=== PATIENT | female | born 1930 | race Caucasian/White ===

== ENCOUNTER 2018-12-11 00:13 | Inpatient (IN) ==
--- NOTE | 2018-12-11 00:24 | ED.PDOC ---
General ED Provider: Dr. DONN PAUL Chief Complaint: Multiple Trauma Stated Complaint: NH stated patient fell earlier today and seemed ok. This evening started "patting" her Rt Hip therefore sent her in for eval of poss hip injury. Is alert and talking. Offers no complaints Time Seen by Physician: 12:00 Mode of Arrival: Ambulance Information Source: Patient, EMT Exam Limitations: Clinical condition, Dementia Seen Within Last 72 Hours for Same Complaint By: ED Nursing and Triage Documentation Reviewed and Agree: Yes Does patient meet sepsis criteria?: Yes If yes, has appropriate treatment been initiated?: Yes System Inflammatory Response Syndrome: Temp 101F or Greater Sepsis Protocol: For patient's 13 years and over: Temp is 96.8 and below OR 101 and greater Pulse >90 BPM Resp >20/minute Acutely Altered Mental Status Are patient's symptoms suggestive of a new infection, such as: -Pneumonia -Skin, Soft Tissue -Endocarditis -UTI -Bone, Joint Infection -Implantable Device -Acute Abdominal Infection -Wound Infection -Meningitis -Blood Stream Catheter Infection -Unknown Review of Systems - Review Of Systems Constitutional: Reports: Malaise, Weakness Eyes: Reports: No symptoms Ears, Nose, Mouth, Throat: Reports: No symptoms Respiratory: Reports: Cough Cardiac: Reports: No symptoms GI: Reports: No symptoms : Reports: No symptoms Musculoskeletal: Reports: Joint pain Skin: Reports: No symptoms Neurological: Reports: Cognitive dysfunction Endocrine: Reports: No symptoms Hematologic/Lymphatic: Reports: No symptoms All Other Systems: Reviewed and Negative Past Medical History - Past Medical History Previously Healthy: Yes Endocrine: Reports: None Cardiovascular: Reports: None, Hypertension Respiratory: Reports: None, Unknown Hematological: Reports: None Gastrointestinal: Reports: None Genitourinary: Reports: None Neuro/Psych: Reports: None, Dementia Musculoskeletal: Reports: None, Back Pain, Joint Pain Cancer: Reports: None - Surgical History General Surgical History: Reports: None - Family History Family History: Reports: None Physical Exam - Physical Exam Appearance: Ill-appearing Ill-appearing: Moderate Pain Distress: Moderate Eyes: AMINA, EOMI, Conjunctiva clear ENT: Ears normal, Nose normal, Oropharynx normal Neck: Supple Respiratory: Breath sounds diminished Cardiovascular: RRR, Pulses normal, No rub, No murmur Musculoskeletal: Normal strength, ROM intact, No edema, No calf tenderness Skin: Warm, Dry, Normal color Neurological: Sensation intact, Motor intact, Reflexes intact, Cranial nerves intact, Alert, Oriented Psychiatric: Affect appropriate, Mood appropriate Critical Care Note - Critical Care Note Total Time (mins): 60 Course - Course Hematology/Chemistry: 12/11/18 00:56 12/11/18 00:56 Orders, Labs, Meds: Lab Review 12/11/18 12/11/18 12/11/18 00:56 00:56 00:56 WBC 11.55 H RBC 3.94 L Hgb 10.9 L Hct 33.9 L MCV 86.0 MCH 27.7 MCHC 32.2 RDW Coeff of Kody 14.0 Plt Count 268 Immature Gran % (Auto) 0.4 Neut % (Auto) 81.8 Lymph % (Auto) 5.8 L Brooks % (Auto) 11.6 H Eos % (Auto) 0.1 Baso % (Auto) 0.3 Immature Gran # (Auto) 0.1 Neut # (Auto) 9.5 H Lymph # (Auto) 0.7 Brooks # (Auto) 1.3 Eos # (Auto) 0.0 Baso # (Auto) 0.0 Puncture Site O2 Saturation ABG pH ABG pCO2 ABG pO2 ABG HCO3 ABG Total CO2 ABG Base Excess Jj Test FiO2 % Sodium Potassium Chloride Carbon Dioxide Anion Gap BUN Creatinine Estimated GFR (MDRD) BUN/Creatinine Ratio Glucose Lactic Acid 1.19 Calcium Total Bilirubin AST ALT Alkaline Phosphatase Troponin I Total Protein Albumin Globulin Albumin/Globulin Ratio Procalcitonin 0.11 12/11/18 12/11/18 00:56 01:48 WBC RBC Hgb Hct MCV MCH MCHC RDW Coeff of Kody Plt Count Immature Gran % (Auto) Neut % (Auto) Lymph % (Auto) Brooks % (Auto) Eos % (Auto) Baso % (Auto) Immature Gran # (Auto) Neut # (Auto) Lymph # (Auto) Brooks # (Auto) Eos # (Auto) Baso # (Auto) Puncture Site Lrad O2 Saturation 94.0 L ABG pH 7.505 H* ABG pCO2 29.4 L ABG pO2 63.0 L ABG HCO3 23.2 ABG Total CO2 24 ABG Base Excess 0 Jj Test + FiO2 % 21.0 Sodium 138.0 Potassium 4.18 Chloride 102.4 Carbon Dioxide 25.0 Anion Gap 14.78 BUN 19.5 H Creatinine 0.93 Estimated GFR (MDRD) 57.00 BUN/Creatinine Ratio 20.96 Glucose 122.5 H Lactic Acid Calcium 8.98 Total Bilirubin 0.45 AST 20.5 ALT 16.0 Alkaline Phosphatase 75.8 Troponin I < 0.012 Total Protein 7.04 Albumin 4.02 Globulin 3.02 Albumin/Globulin Ratio 1.33 Procalcitonin Orders Category Date Time Status ABG DRAW REQUEST Stat CARDIO 12/11/18 01:48 Ordered EKG-(ED ONLY) Stat CARDIO 12/11/18 01:48 Completed NEBULIZER TREATMENT Routine CARDIO 12/11/18 02:37 Ordered NEBULIZER TREATMENT Stat CARDIO 12/11/18 01:49 Ordered NEBULIZER TREATMENT Stat CARDIO 12/11/18 01:49 Ordered OXYGEN Routine CARDIO 12/11/18 02:26 Ordered ACTIVITY .Complete BR CARE 12/11/18 02:33 Ordered BLOOD GLUCOSE MONITORING 0630,1100,1700,2100 CARE 12/11/18 02:36 Ordered INTAKE & OUTPUT Q8HR CARE 12/11/18 02:32 Ordered VITAL SIGNS Q4HR CARE 12/11/18 02:32 Ordered SOFT DIET DIETARY 12/11/18 Breakfast Ordered IV [ED IV/MEDIPORT/POWERPORT] .ONCE EMERGENCY 12/11/18 01:24 Active ABG Stat LAB 12/11/18 01:48 Ordered BLOOD CULTURE (ED ONLY) Stat LAB 12/11/18 00:56 Received BLOOD CULTURE (ED ONLY) Stat LAB 12/11/18 02:02 Received CBC W/ AUTO DIFF Stat LAB 12/11/18 00:56 Completed CMP [COMPREHENSIVE METABOLIC PANEL] Stat LAB 12/11/18 00:56 Completed LACTIC ACID Stat LAB 12/11/18 00:56 Completed PROCALCITONIN Stat LAB 12/11/18 00:56 Completed SPUTUM CULTURE Stat LAB 12/11/18 01:50 Uncollected TROPONIN I Stat LAB 12/11/18 00:56 Completed UA [URINALYSIS C & S IF INDICATED] Stat LAB 12/11/18 00:28 Uncollected UA [URINALYSIS C & S IF INDICATED] Stat LAB 12/11/18 00:36 Uncollected 0.9 % Sodium Chloride [Saline Flush] MEDS 12/11/18 01:24 Ordered 1 syr IVF PRN PRN Albuterol Sulfate 0.083% Neb [Albuterol 0.083% Neb] MEDS 12/11/18 01:49 Discontinued 1 vial NEB ONCE STA Aztreonam [Azactam] 1 gm MEDS 12/11/18 05:00 Ordered 0.9 % Sodium Chloride [Sodium Chloride] 50 ml IV Q8HR Ceftriaxone Sodium [Rocephin] 1 gm MEDS 12/11/18 09:00 Ordered 0.9 % Sodium Chloride [Sodium Chloride] 50 ml IV DAILY Ceftriaxone/Dextrose,Iso Osm [Rocephin 1 gm Premix] 1 MEDS 12/11/18 01:28 Discontinued gm Premix 50 ml D5w 1 bag IV ONCE Ceftriaxone/Dextrose,Iso Osm [Rocephin 1 gm Premix] 50 MEDS 12/11/18 01:39 Discontinued ml IV .STK-MED Enoxaparin Sodium [Lovenox] MEDS 12/11/18 03:00 Ordered 30 mg SUBCUT DAILY Ipratropium/Albuterol Neb [Duoneb] MEDS 12/11/18 02:32 Ordered 1 vial NEB RTQ6H PRN Methylprednisolone Sod Succ/Pf [Solu-Medrol 125 mg] MEDS 12/11/18 03:00 Ordered 125 mg IVP Q8HR Ondansetron HCl/Pf [Zofran 4 mg/2 ml] MEDS 12/11/18 02:32 Ordered 4 mg IVP Q6H PRN Sodium Chloride 0.9% [Sodium Chloride] 1,000 ml MEDS 12/11/18 01:24 Active IV ONCE RESUSCITATION STATUS Routine OTHERS 12/11/18 02:[address] ABDOMEN/PELVIS WO CONTRAST Stat RADS 12/11/18 00:[address] CHEST W/O CONTRAST Stat RADS 12/11/18 00:31 Completed Medications Generic Name Dose Route Start Last Admin Trade Name Freq PRN Reason Stop Dose Admin Albuterol/Ipratropium 1 vial 12/11/18 02:32 Duoneb NEB RTQ6H PRN Wheezing Enoxaparin Sodium 30 mg 12/11/18 03:00 Lovenox SUBCUT DAILY ISAAC Sodium Chloride 1,000 mls @ 125 mls/hr 12/11/18 01:24 12/11/18 02:02 Sodium Chloride IV 12/11/18 09:23 125 mls/hr ONCE ONE Administration Aztreonam 1 gm/ Sodium 50 mls @ 75 mls/hr 12/11/18 05:00 Chloride IV 12/14/18 04:59 Q8HR ISAAC Ceftriaxone Sodium 1 gm/ 50 mls @ 75 mls/hr 12/11/18 09:00 Sodium Chloride IV 12/14/18 08:59 DAILY ISAAC Methylprednisolone Sodium Succinate 125 mg 12/11/18 03:00 Solu-Medrol 125 Mg IVP Q8HR ISAAC Ondansetron HCl 4 mg 12/11/18 02:32 Zofran 4 Mg/2 Ml IVP Q6H PRN Nausea and Vomiting Sodium Chloride 1 syr 12/11/18 01:24 12/11/18 02:02 Saline Flush IVF 1 syr PRN PRN Administration To flush IV Discontinued Medications Generic Name Dose Route Start Last Admin Trade Name Freq PRN Reason Stop Dose Admin Albuterol Sulfate 1 vial 12/11/18 01:49 Albuterol 0.083% Neb NEB 12/11/18 01:50 ONCE STA CEFTRIAXONE/DEXTROSE,ISO OSM 1 50 mls @ 75 mls/hr 12/11/18 01:28 12/11/18 02: 05 gm/ Dextrose IV 12/11/18 02:07 75 mls/hr ONCE STA Administration Vital Signs: Temp Pulse Resp BP Pulse Ox 12/11/18 02:42 101.1 F H 12/11/18 00:14 101.4 F H 75 18 165/71 H 93 L Departure - Departure Time of Disposition: 02:30 Disposition: ADMITTED INPATIENT Discharge Problem: Pneumonia, Pleural effusion, Sepsis Condition: Fair Pt referred to PMD for follow-up: No IPMP verified?: No Allergies/Adverse Reactions: Allergies Penicillins Adverse Reaction (Verified 12/11/18 00:29) Unknown Home Medications: Ambulatory Orders Acetaminophen [Tylenol] 650 mg PO Q6H PRN 12/11/18 Amlodipine Besylate 10 mg PO DAILY 12/11/18 Bisacodyl 5 mg PO DAILY 12/11/18 Bisacodyl [Dulcolax] 10 mg RC DAILY PRN 12/11/18 Donepezil HCl [Aricept] 5 mg PO DAILY 12/11/18 Lisinopril [Zestril] 40 mg PO BID 12/11/18 Lorazepam [Ativan] 0.5 mg PO TID 12/11/18 Meloxicam 15 mg PO DAILY 12/11/18 Memantine HCl 10 mg PO BID 12/11/18 Metoprolol Succinate [Toprol Xl] 50 mg PO DAILY 12/11/18 Petrolatum,White [Petrolatum] 100 gm TP DIRECTED PRN 12/11/18 Quetiapine Fumarate [Seroquel] 50 mg PO BID 12/11/18 Disposition Discussed With: Patient
--- NOTE | 2018-12-11 01:13 | CT ---
EXAM: CT scan chest without contrast HISTORY: Fall COMPARISON: None. FINDINGS: Contiguous axial images obtained through the thorax without contrast in a 5 mm collimation . Sagittal and coronal reconstructions were imaged and reviewed.. The thoracic inlet is is unremark able. There are subcentimeter pretracheal lymph nodes.. The heart is top normal in size with extens juany coronary artery calcification. There is small pericardial effusion measuring 1.6 centimeters. T here is moderately large right pleural effusion measuring 6.4 cm AP dimension with adjacent atelectas is and/or pneumonia. Scattered consolidation and is seen within the right upper medial segment of th e right mid lobe. There is a trace left pleural effusion.. The bone windows reveals no evidence of lytic or blastic lesions. IMPRESSION: Heart is top normal in size with small pericardial effusion and coronary artery calcification Large right pleural effusion with right upper and middle lobe consolidation Trace left pleural effusion
--- NOTE | 2018-12-11 01:20 | CT ---
EXAM: CT abdomen pelvis without intravenous contrast 12/11/2018. Sagittal and coronal reformatted i ara obtained HISTORY: Pain. Fall COMPARISON: 12/11/2018 FINDINGS: Please refer to report of CT chest for discussion of findings within the lung bases. The liver shows no acute abnormality. Gallbladder shows no gross abnormality. The adrenal glands an d kidneys show no acute abnormality. No hydronephrosis. The spleen and pancreas appear within sapna l limits. Small bowel is normal in caliber without obstruction. Unremarkable urinary bladder. No evidence of appendicitis. There is a prominent quantity of stool in the colon. Correlate for constipation. Chronic degenerative disc disease. No acute osseous abnormality. IMPRESSION: 1. Please refer to report of CT chest for discussion of findings within the lung bases. 2. No acute inflammatory process identified within the abdomen or pelvis within the limitation of a noncontrast enhanced examination. 3. Large quantity of stool in the colon. Correlate for constipation. 4. Atherosclerotic vascular disease. 5. Chronic degenerate disc disease.
[2018-12-11] MEDS ORDERED: SODIUM CHLORIDE 1,000 ML IV ONE (01:24)
[2018-12-11] MEDS ORDERED: ROCEPHIN 1 GM/50 ML D5W 1 GM in PREMIX 50 ML D5W 1 BAG IV STA (01:28)
[2018-12-11] MEDS ORDERED: ROCEPHIN 1 GM/50 ML D5W 50 ML IV ONE (01:39)
[2018-12-11] MEDS ORDERED: ALBUTEROL 0.083% NEB NEB STA (01:49)
[2018-12-11] MEDS ORDERED: ZOFRAN 4 MG/2 ML IVP PRN (02:32)
[2018-12-11] MEDS ORDERED: DUONEB NEB PRN (02:32)
[2018-12-11 04:09] VITALS: BMI 23.6
[2018-12-11] MEDS: LOVENOX SUBCUT SCH ×2 (04:09→08:15)
[2018-12-11] MEDS: SOLU-MEDROL 125 MG IVP SCH ×3 (04:16→12:04)
[2018-12-11] MEDS ORDERED: AZACTAM ONE (05:46)
[2018-12-11] MEDS: AZACTAM 1 GM in SODIUM CHLORIDE 50 ML IV SCH ×2 (05:50→12:04)
[2018-12-11] MEDS ORDERED: ATROPINE SULFATE PFS IVP PRN (06:18)
[2018-12-11] MEDS ORDERED: TYLENOL PO PRN (09:48)
[2018-12-11] MEDS ORDERED: DULCOLAX RC PRN (09:49)
[2018-12-11] MEDS ORDERED: NON-FORMULARY MEDICATION (Donepezil Hcl [Aricept] 5 MG) PO SCH (10:00)
[2018-12-11] MEDS ORDERED: TOPROL XL PO SCH (10:00)
[2018-12-11] MEDS ORDERED: NON-FORMULARY MEDICATION (Amlodipine Besylate [Amlodipine Besylate] 10 MG) PO SCH (10:00)
[2018-12-11] MEDS ORDERED: NON-FORMULARY MEDICATION (Quetiapine Fumarate [Seroquel] 50 MG) PO SCH (10:00)
[2018-12-11] MEDS ORDERED: NON-FORMULARY MEDICATION (Meloxicam [Meloxicam] 15 MG) PO SCH (10:00)
[2018-12-11] MEDS ORDERED: SEROQUEL PO SCH (10:30)
[2018-12-11] MEDS ORDERED: MOBIC PO SCH (10:30)
[2018-12-11] MEDS ORDERED: ZESTRIL PO ONE (10:30)
[2018-12-11] MEDS: ARICEPT PO SCH (10:40)
[2018-12-11] MEDS: ATIVAN PO SCH ×3 (10:41→20:16)
[2018-12-11] MEDS: NORVASC PO SCH (10:41)
[2018-12-11] MEDS: DULCOLAX PO SCH (10:42)
[2018-12-11] MEDS: NAMENDA PO SCH ×2 (10:42→20:16)
[2018-12-11] MEDS ORDERED: INFUVITE ADULT IV ONE (17:54)
[2018-12-11] MEDS ORDERED: INFUVITE ADULT 10 ML in D5%-1/2NS-KCL 20 MEQ/L IV SOL 1,000 ML IV SCH (18:00)
[2018-12-11] MEDS: SILVADENE CREAM TP SCH ×3 (18:21→20:21)
[2018-12-11] MEDS: SEROQUEL PO SCH (20:16)
[2018-12-11] MEDS: ROCEPHIN 1 GM VIAL 1 GM in SODIUM CHLORIDE 50 ML IV SCH (20:17)
[2018-12-12] MEDS: NAMENDA PO SCH ×2 (08:09→20:27)
[2018-12-12] MEDS: TOPROL XL PO SCH (08:09)
[2018-12-12] MEDS: DULCOLAX PO SCH (08:09)
[2018-12-12] MEDS: ATIVAN PO SCH ×3 (08:09→20:26)
[2018-12-12] MEDS: NORVASC PO SCH (08:09)
[2018-12-12] MEDS: ARICEPT PO SCH (08:10)
[2018-12-12] MEDS: SILVADENE CREAM TP SCH ×2 (08:10→20:28)
[2018-12-12] MEDS: LOVENOX SUBCUT SCH (08:11)
[2018-12-12] MEDS ORDERED: TOPROL XL PO SCH (09:00)
[2018-12-12] MEDS: ZESTRIL PO SCH ×2 (09:42→09:49)
[2018-12-12] MEDS: HYDROCHLOROTHIAZIDE PO SCH (09:49)
[2018-12-12] MEDS ORDERED: INFUVITE ADULT IV ONE (19:26)
[2018-12-12] MEDS: INFUVITE ADULT 10 ML in D5%-1/2NS-KCL 20 MEQ/L IV SOL 1,000 ML IV SCH (19:27)
[2018-12-12] MEDS: SEROQUEL PO SCH (20:26)
[2018-12-12] MEDS: ROCEPHIN 1 GM VIAL 1 GM in SODIUM CHLORIDE 50 ML IV SCH (20:26)
[2018-12-12] MEDS ORDERED: CLEOCIN ONE (23:34)
[2018-12-12] MEDS: CLEOCIN 600 MG in SODIUM CHLORIDE 50 ML IV SCH (23:40)
[2018-12-13] MEDS: NAMENDA PO SCH ×2 (08:55→21:13)
[2018-12-13] MEDS: HYDROCHLOROTHIAZIDE PO SCH (08:55)
[2018-12-13] MEDS: CLEOCIN 600 MG in SODIUM CHLORIDE 50 ML IV SCH ×2 (08:55→22:09)
[2018-12-13] MEDS: NORVASC PO SCH (08:56)
[2018-12-13] MEDS: ATIVAN PO SCH ×3 (08:56→21:13)
[2018-12-13] MEDS: DULCOLAX PO SCH (08:56)
[2018-12-13] MEDS: ARICEPT PO SCH (08:57)
[2018-12-13] MEDS: ZESTRIL PO SCH (08:57)
[2018-12-13] MEDS: TOPROL XL PO SCH (08:57)
[2018-12-13] MEDS: LOVENOX SUBCUT SCH (08:58)
[2018-12-13] MEDS: SILVADENE CREAM TP SCH ×2 (09:52→21:17)
[2018-12-13] MEDS: INFUVITE ADULT 10 ML in D5%-1/2NS-KCL 20 MEQ/L IV SOL 1,000 ML IV SCH (19:00)
[2018-12-13] MEDS: ROCEPHIN 1 GM VIAL 1 GM in SODIUM CHLORIDE 50 ML IV SCH (21:13)
[2018-12-13] MEDS: SEROQUEL PO SCH (21:13)
[2018-12-14] MEDS: CLEOCIN 600 MG in SODIUM CHLORIDE 50 ML IV SCH ×2 (08:18→20:20)
[2018-12-14] MEDS: ATIVAN PO SCH ×3 (08:20→20:21)
[2018-12-14] MEDS: DULCOLAX PO SCH (08:21)
[2018-12-14] MEDS: HYDROCHLOROTHIAZIDE PO SCH (08:22)
[2018-12-14] MEDS: NORVASC PO SCH (08:24)
[2018-12-14] MEDS: ARICEPT PO SCH (08:26)
[2018-12-14] MEDS: ZESTRIL PO SCH (08:26)
[2018-12-14] MEDS: TOPROL XL PO SCH (08:26)
[2018-12-14] MEDS: LOVENOX SUBCUT SCH (08:32)
[2018-12-14] MEDS: NAMENDA PO SCH ×2 (09:03→20:20)
[2018-12-14] MEDS: SILVADENE CREAM TP SCH ×2 (09:38→20:22)
[2018-12-14] MEDS ORDERED: INFUVITE ADULT IV ONE (13:04)
--- NOTE | 2018-12-14 14:16 | HP ---
DATE OF SERVICE: 12/11/18 CHIEF COMPLAINT: Multiple trauma and she was a transfer from [facility] per nursing staff per ER records. The longterm stated that the patient fell. HISTORY OF PRESENT ILLNESS: Per ER records the longterm had stated that the patient had feel earlier that day and seemed okay. Later that evening the patient had started patting her right hip and therefore they sent her to the ER for evaluation of possible hip injury. She was alert and talking. She offered no complaints while in the emergency department. A workup was completed and her WBC was 11.55, hgb 10.9, hct 33.9, plt count 268. A CT of the chest showed a large right pleural effusion and a right lower lobe consolidation and left trace pleural effusion. CT of the abdomen and pelvis showed no acute abdominal or osteosis abnormalities , it did show constipation. The patient was placed on oxygen as well as given a nebulizer treatment. ABG's were drawn. EKG was obtained. Blood cultures were also obtained and cardiac markers were also obtained in the emergency department. PCo2 was 29.4, pO2 63, HCO3 23.2. The case was discussed with Dr. Burciaga and the discussion was made to admit the patient inpatient for evaluation and treatment of the pneumonia. PAST PERSONAL HISTORY: Hypertension Cardiac disorders Alzheimer's disease Dysphagia Respiratory disorders Pneumonia Constipation Chronic kidney disease stage 3 Osteoarthritis No surgical history reported FAMILY HISTORY: Not reported SOCIAL HISTORY: No reports of alcohol, tobacco or illicit drug use. MEDICATIONS: Acetaminophen 325 every 6 hours as needed Seroquel 50mg twice a day Petrolatum 100gram TP as directed PRN Amlodipine 10mg tablet daily Metoprolol Succinate 50mg PO daily Memantine 10mg tablet twice a day Meloxicam 15mg tablet daily Zestril 40mg PO twice a day Dulcolax 10mg rectal suppository as needed Bisacodyl 5mg PO daily Ativan 0.5mg PO three times a day Aricept 5mg PO daily ALLERGIES: Penicillin REVIEW OF SYSTEMS: CONSTITUTIONAL: Difficult to obtain due to patient's hearing loss and also dementia but with nursing staff and review of ER reports there were no reports of fevers, chills. HEENT: No reports of headache or nasal drainage or sore throat. CARDIOVASCULAR: There was no reports of chest pains or peripheral edema LUNGS: The patient did not have complaints of shortness of breath. There were no reports cough or congestion. GI: NO reports of abdominal pain, nausea or vomiting or diarrhea or constipation but according to records the patient must have a history of chronic constipation as she does take stool softeners. No reports of blood in the stool : no reports of UTI symptoms. No reports of Hematuria or dysuria. MUSCULOSKELETAL: There was reports per nursing staff that the patient was not able to ambulate however the nursing staff did report that the patient was able to ambulate with therapy down the hallway. They are wanting a physical therapy order to help with gait training at discharge and this will be done. Reason for the admission the patient had a fall, I'm unsure as why the patient had a fall this was incidental. It was not reported as to why the patient fell and she initially had some complaints of some right hip discomfort as she had patted her right hip but that was resolved when she had got to the emergency department. NEUROLOGICAL: No reports of dizziness or any neurological deficit or syncopal episode. PSYCHOLOGICAL: No reports of anxiety, depression or mood changes. She does have a history of Alzheimer's Dementia. She is alert and she is pleasant. ENDOCRINE: No reports of diabetes mellitus or thyroid disease INTEGUMENTARY: She does have some dry skin otherwise no reports of any rash, lesion, skin changes or not healing wounds. PHYSICAL EXAMINATION: GENERAL: She is alert, confused. She does have Alzheimer's Dementia. She is pleasant. VITAL SIGNS: Temperature 101.4, pulse 75, blood pressure 165/71, O2 saturation 93% on room air, height 5'5 and weight 143 pounds. HEAD: Normal cephalic. Atraumatic EYES: Pupils equal/reactive to light. Conjunctivae not pale. Sclerae not icteric. MOUTH: She does not have dentures in place THROAT: No inflammation, tumors or exudate. NECK: No masses. No bruit. No tenderness. No rigidity. Supple. CHEST: S1, S2 regular rate. LUNGS: Diminished. Breathing is stable. Difficult to auscultate her lungs as the patient has a hard time following directions HEART: Audible and regular with good tones. No murmurs. ABDOMEN: Soft. Bowel sounds are positive all four quadrants. No rebound tenderness or rigidity. NEURO: Cranial nerves II through XII are grossly intact. No advert neurological deficit. SKIN: Warm and dry. No obvious rashes, Lesions or wounds. LOWER EXTREMITIES: She does have some trace lower extremity edema. Peripheral pulses are diminished and difficult to palpate. LABS/DIAGNOSTIC TESTING: WBC on admission 11.55, hgb 10.9, hct 33.9, plt count 268, blood gasses already discussed in HPI, Sodium 138, Potassium 4.18, BUN 19.5, creatinine 0.93, AST 20.5, ALT 16.0, Troponin is negative. Procalcitonin 0.11. On admission urinalysis showed 3+ protein, 2+ blood, negative nitrates, 2+ mucus. ASSESSMENT: 1. Pneumonia 2. Large right pleural effusion with right upper and middle lobe consolidation per CT of the chest on admission 3. Fever 4. Status post recent fall with right hip discomfort on admission 5. History of Alzheimer's Dementia 6. Hypertension 7. Chronic kidney disease stage 3 PLAN: 1. Admit the patient inpatient 2. Start the patient on NEBS treatment 3. Blood cultures and sputum cultures 4. Antibiotics will be initiated. 5. Home medications will be resumed 6. The patient will be placed on Telemetry monitoring 7. The patient was getting a 2D echocardiogram done while I was in the room. 8. PT is already been in and working with the patient Further orders and recommendations per Dr. Burciaga TIME SPENT: GREATER THAN 65 MINUTES MTDD
--- NOTE | 2018-12-14 14:58 | PN ---
DATE OF SERVICE: 12/13/18 SUBJECTIVE: Today she is getting a 2 D echo completed. Today her vital signs; temperature 98.0, pulse 74, blood pressure 162/73, O2 saturation 93% on room air. She has been running on remote Telemetry which showed sinus rhythm with PVC's at a rate of 83 beats per minute. Again, she is getting a 2D echo and they are getting ready to do that in the room in just a minute. The nurse reports that physical therapy walked her in the hallway today and the family was unaware that she could walk the distance that she could walk and they are wanting an order for physical therapy to work with her at the assisted and I said that was very much appropriate that we would definitely agree with a physical therapy order at discharge and we have physical therapy work with the patient in the assisted to work with gait training. Again the family was very surprise that she could walk as well as she did. She seems to be in no acute distress. It is very difficult to do a physical exam on her. She was not able to follow any commands. She is very hard of hearing. She does not have any hearing aide devices in place. She also has some Alzheimer's Dementia and she can no follow very good commands. LUNGS: Seems to be somewhat diminished HEART: Regular on examined ABDOMEN: Soft and nontender. LOWER EXTREMITIES: Slight lower extremity edema. Lower extremity pulses are diminished. She has no complaints of pain today. Overall she appears to be resting comfortably. As far as orders she seems to be tolerating a soft diet puree with nectar thick liquids. She did have her left right wrapped. I was unaware that there was a wound on this hand but this hand was wrapped in a bandage. There must be a wound to this hand. This wound culture has grown out staphylococcus aureus, Kocuria Kristinae. Blood cultures have been negative after two days. NABIL
--- NOTE | 2018-12-14 15:57 | CT ---
EXAM: CT chest without contrast HISTORY: Shortness of air COMPARISON: 12/11/2018 TECHNIQUE: CT chest performed without intravenous contrast. Coronal and sagittal reformatted images obtained. FINDINGS: The thoracic inlet unremarkable. Heart mild to mildly enlarged. Coronary calcifications. Small pericardial effusion, unchanged. Evaluation for lymphadenopathy limited without contrast. N o lymphadenopathy identified. Aorta normal in caliber. Moderate atherosclerosis. Visualized portio n upper abdomen demonstrates no acute abnormality. Left renal cyst is unchanged. Body wall edema. No acute abnormalities of the bones. Lytic lesion T3, is indeterminate, may represent a hemangioma. Central airway patent. Large right pleural effusion is increased with adjacent atelectasis and/or c onsolidation. Small left pleural effusion is increased. Patchy consolidation and ground-glass infil trates throughout the right lung. No pneumothorax. IMPRESSION: 1. Patchy multifocal consolidation and ground-glass infiltrates throughout the right lung likely rep resenting pneumonia. 2. Large right pleural effusion is increased with adjacent atelectasis and/or pneumonia. 3. Small left pleural effusion, increased. 4. Cardiomegaly. 5. Small pericardial effusion. 6. Coronary calcifications. Atherosclerosis. 7. Indeterminate lytic lesion T3, may represent a hemangioma. Recommend correlation with MRI.
[2018-12-14] MEDS: XOPENEX 1.25 MG NEB SCH (16:59)
[2018-12-14] MEDS: SEROQUEL PO SCH (20:21)
[2018-12-15] MEDS: XOPENEX 1.25 MG NEB SCH (04:40)
[2018-12-15] MEDS: CLEOCIN 600 MG in SODIUM CHLORIDE 50 ML IV SCH (08:08)
[2018-12-15] MEDS: HYDROCHLOROTHIAZIDE PO SCH (08:09)
[2018-12-15] MEDS: ATIVAN PO SCH (08:09)
[2018-12-15] MEDS: DULCOLAX PO SCH (08:09)
[2018-12-15] MEDS: TOPROL XL PO SCH (08:10)
[2018-12-15] MEDS: NAMENDA PO SCH (08:10)
[2018-12-15] MEDS: ARICEPT PO SCH (08:10)
[2018-12-15] MEDS: ZESTRIL PO SCH (08:10)
[2018-12-15] MEDS: NORVASC PO SCH (08:10)
[2018-12-15] MEDS: LOVENOX SUBCUT SCH (08:11)
[2018-12-15] MEDS: SILVADENE CREAM TP SCH (08:49)
[2018-12-15] MEDS: INFUVITE ADULT 10 ML in D5%-1/2NS-KCL 20 MEQ/L IV SOL 1,000 ML IV SCH (10:04)
--- NOTE | 2018-12-15 13:24 | CONS ---
DATE OF CONSULTATION: 12/13/18 REASON FOR CONSULTATION/HISTORY OF PRESENT ILLNESS: The patient is seen in consultation because of pericardial effusion noted on CT scan along with pleural effusion with history of pneumonia. The patient has been hospitalized since 12/11/18 and being treated for pneumonia. The patient is hard of hearing, confused. The family is in the room. REVIEW OF SYSTEMS: CONSTITUTIONAL: No night sweats. No fatigue, malaise, lethargy. No fever or chills. HEENT: Eyes: No visual changes. No eye pain. No eye discharge. ENT: No sinus drainage. No epistaxis. No sinus pain. No sore throat. No odynophagia. No ear pain. No congestion. RESPIRATORY: Mild cough. No hemoptysis. No shortness of breath. CARDIOVASCULAR: No angina symptoms. No CHF symptoms. No atypical chest pain for CAD. No palpitations. No orthopnea. GASTROINTESTINAL: Appetite has improved. No abdominal pain. No nausea or vomiting. No diarrhea or constipation. No hematemesis. No hematochezia. GENITOURINARY: No urgency. No frequency. No dysuria. No hematuria. No obstructive symptoms. No discharge. No pain. No significant abnormal bleeding. MUSCULOSKELETAL: No musculoskeletal pain. No joint swelling. NEUROLOGICAL: No headache. No neck pain. No syncope. No seizures. No dizziness. PSYCHIATRIC: Not anxious. No depression. No suicidal thoughts. No homicidal thoughts. SKIN: No rash. No lesions. No wounds. ENDOCRINE: No unexplained weight loss. No weight gain. HEMATOLOGIC/LYMPHATIC: No anemia. No purpura. No petechiae. No prolonged or excessive bleeding. No palpable lymph nodes. 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 She is a resident of the [place]. Nonsmoker. No alcohol abuse. PHYSICAL EXAMINATION: GENERAL: The patient is confused but alert. She looks somewhat pale. VITAL SIGNS: Temperature 98.9, pulse 80, respiratory rate 18, BP 156/70, pulse ox 94%. HEENT: Head normocephalic, atraumatic. Eyes: Extraocular muscles are intact. Pupils are equal, round and reactive to light and accommodation. Ears: No lesions. Nose appeared normal. Throat: No exudate or erythema. NECK: Supple. No JVD, no carotid bruit. No lymphadenopathy or thyromegaly. LUNGS: Decreased breath sounds but clear to auscultation. Percussion note normal. Chest symmetrical. HEART: S1, S2, no S3. No murmurs. No cyanosis or clubbing. No ascites. Pulses: Dorsalis pedis and posterior tibial pulses +1 to +2 bilaterally. ABDOMEN: Soft. Nontender. Bowel sounds active. No CVA tenderness. No mass felt. EXTREMITIES: No edema. Full range of motion of all extremities, equal. NEUROLOGIC: Confused, disoriented, not oriented to place or person. No focal deficit. Cranial nerves II through XII are grossly intact. No headache, no double vision or headache. SKIN: Not dry. Intact. Turgor - normal. LYMPHATIC: No palpable lymph nodes/no lymphedema. MUSCULOSKELETAL: Normal joints with no swelling. Muscle tone is normal. LABS: Hemoglobin 9.3, hematocrit 29, WBC 11,000, normal differential. Creatinine 1.1, BUN 37, potassium 3.6. ASSESSMENT: 1. PNEUMONIA SEEMS TO BE RESOLVING. 2. PERICARDIAL EFFUSION WAS CHECKED BY ECHOCARDIOGRAM. ECHO SHOWED NORMAL LV CONTRACTILITY. PERICARDIAL EFFUSION WAS TRACE. VALVULAR STRUCTURES ARE NORMAL. MITRAL REGURGITATION NOTED. 3. THE PATIENT'S CARDIOVASCULAR STATUS IS STABLE. 4. PLEURAL EFFUSION COULD BE FROM MALNUTRITION ALONG WITH PNEUMONIA SEEMS TO BE RESOLVING CLINICALLY. Agree with present management. MTDD
--- NOTE | 2018-12-15 13:33 | CONS ---
DATE OF SERVICE: 12/14/18 CONSULT FOLLOWUP SUBJECTIVE: The patient was seen and examined on followup consult. The patient is alert, confused. REVIEW OF SYSTEMS: CONSTITUTIONAL: No night sweats. No fatigue, malaise, lethargy. No fever or chills. HEENT: Eyes: No visual changes. No eye pain. No eye discharge. ENT: No runny nose. No epistaxis. No sinus pain. No sore throat. No odynophagia. No ear pain. No congestion. RESPIRATORY: No cough, no congestion. No hemoptysis. CARDIOVASCULAR: No angina symptoms. No CHF symptoms. No atypical chest pain for CAD. No palpitations. No shortness of breath. GASTROINTESTINAL: No abdominal pain. No nausea or vomiting. No diarrhea or constipation. No hematemesis. No hematochezia. GENITOURINARY: No urgency. No frequency. No dysuria. No hematuria. No obstructive symptoms. No discharge. No pain. No significant abnormal bleeding. MUSCULOSKELETAL: No musculoskeletal pain. No joint swelling. No arthritis. NEUROLOGICAL: No headache. No neck pain. No syncope. No seizures. No dizziness. PSYCHIATRIC: Not anxious. No depression. No suicidal thoughts. No homicidal thoughts. SKIN: No rash. No lesions. No wounds. ENDOCRINE: No unexplained weight loss. No weight gain. HEMATOLOGIC/LYMPHATIC: No anemia. No purpura. No petechiae. No prolonged or excessive bleeding. No palpable lymph nodes. PHYSICAL EXAMINATION: VITAL SIGNS: Temperature 98, pulse 70, respiratory rate 18, blood pressure 150/ 67, pulse ox 92%. HEENT: Head normocephalic, atraumatic. Eyes: Extraocular muscles are intact. Pupils are equal, round and reactive to light and accommodation. Ears: No lesions. Nose appeared normal. Throat: No exudate or erythema. NECK: Supple. No JVD, no carotid bruit. No lymphadenopathy or thyromegaly. LUNGS: Decreased breath sounds but clear to auscultation. Percussion note normal. Chest symmetrical. HEART: S1, S2, no S3. No murmurs. No cyanosis or clubbing. No ascites. Pulses: Dorsalis pedis and posterior tibial pulses +1 to +2 bilaterally. ABDOMEN: Soft. Nontender. Bowel sounds active. No CVA tenderness. No mass felt. EXTREMITIES: No edema. Full range of motion of all extremities, equal. NEUROLOGIC: No focal deficit. Cranial nerves II through XII are grossly intact. No headache, no double vision or headache. SKIN: Hydration status - skin turgor seems to be normal. LYMPHATIC: No palpable lymph nodes/no lymphedema. MUSCULOSKELETAL: Normal joints with no swelling. Muscle tone is normal. ASSESSMENT: 1. Pneumonia seems to be resolving clinically. 2. Dementia is stable. PLAN: 1. Discontinue Meloxicam. 2. Continue Amlodipine and antihypertensive medications Metoprolol and Lisinopril. 3. I agree with the present management. CONDITION: Stable. MTDD
[2018-12-15 13:54] VITALS: BP 169/75; TEMP 99.4
--- NOTE | 2018-12-15 14:18 | DI ---
EXAM: RIGHT HIP, 2 VIEWS HISTORY: Hip pain FINDINGS / IMPRESSION: Limited image quality. No fracture or dislocation is obvious. There is at least mild osteoarthritis of the hip. No soft tissue finding.
--- NOTE | 2018-12-16 09:31 | ECHO2D ---
Date of Exam: 12/13/18 Ordering Physician: DR. ANDREY SAMS Room #: 114 Reason for Echo: SHORT OF AIR, PERICARDIAL EFFUSION M-Mode Normal Adult Results LV Dimensions Normal Adult Results AoV Opening excursions >1.6 >1.8 LVEDD-base- 3.5-5.8 4.3 Ao root dimensions 2.0-3.7 3.1 LVESD-base- 3.1-4.6 L. Atrium dimensions 1.9-3.8 4.7 Post. Wall thickness 0.8-1.1 1.1 IV septum (thickness) 0.7-1.2 1.2 Post. Wall excursion 0.72-1.3 NORMAL Septal motion NORMAL Systolic motion R. Ventricular cavity 1.5-2.0 NORMAL LVEF 60% 63% Paradoxical septal wall motion NORMAL 2-D : 2-D M Mode Echocardiogram was performed using apical four chamber and left parasternal long and short axis views. CALCIFIC MITRAL VALVE ANNULUS. Tricuspid and aortic valves appear to be normal. Contractility of the left ventricle seems to be normal, so is the cavity size. LEFT ATRIAL CAVITY ENLARGEMENT. Aortic root appears to be normal. There is no pericardial effusion. There is no thrombus noted in the left ventricular or left aortic cavity. No mitral valve prolapse noted. COLOR FLOW: MODERATE MITRAL REGURGITATION M-MODE: MV: CALCIFIC MITRAL VALVE ANNULUS AV: NORMAL TV: NORMAL PV: CHAMBER SIZE: ENLARGED LEFT ATRIAL CAVITY WALL MOTION: NORMAL PERICARDIUM: NORMAL INTERPRETATION: 1. BORDERLINE LEFT VENTRICLE HYPERTROPHY 2. ENLARGED LEFT ATRIAL CAVITY 3. CALCIFIC MITRAL VALVE ANNULUS 4. NORMAL LEFT VENTRICULAR CONTRACTILITY 5. MODERATE MITRAL REGURGITATION MTDD
--- NOTE | 2018-12-17 14:36 | PN ---
DATE OF SERVICE: 12/12/18 SUBJECTIVE: The patient is much more alert today and engaging. She wants to talk but could not hear very much. She did not have a hearing aid. Her color is good. She is not dyspneic or tachypneic. Yesterday the patient was hardly able to answer questions and she was drowsy. Vital signs today 8:41 p.m. temperature 98.7, pulse 65, blood pressure 138/80, respiratory rate 16, oxygen saturation 93 on room air. Lungs have rales more on the left side, few rales on the right. Heart is audible with good tones. Abdomen nontender. CBC today showed increasing WBC 10,0009 from 11,050 yesterday. BUN has risen to 37.6 and the creatinine is up to 1.20, EGFR 42. The patient's urinalysis on admission showed 20 to 30 RBC. Will repeat the urinalysis tomorrow. Culture of wound in the left dorsal hand moderate growth of gram positive cocci probably staph. Will wait for ID tomorrow. The area had been dressed and treated with Bactroban. This patient is receiving Ceftriaxone, is probably not adequate for bacteria. Will wait for the identification and sensitivity plus ANJALI. She is only allergic to Penicillin. This patient will be given a trial of Clindamyicin 300 mg every 8 hours and see if that will improve the problems in the hand. [facility]
--- NOTE | 2019-01-11 13:31 | PN ---
DATE OF SERVICE: 12/14/18 SUBJECTIVE: The patient was seen today. She is resting in her chair. Vital signs are stable. Temperature 98.3, pulse rate 72, blood pressure 151/67, 02 sat 92% on room air. Remote telemetry is normal sinus rhythm with PVCs and her rate is 82 bpm. Her hand wound was reevaluated today. According to first evaluation, her hand has improved today. There is much less erythema. The wound is approximately 1 1/2 in length approximately 1/2 in width. There is no drainage. The wound is moist, appears moistly superficial. It does have some scab formation to the right side of the wound. There is no red streaking. There is no drainage to the wound. Again, it does appear to be healing. Silvadene was placed on the wound and it was redressed with Telfa and some Coban. There was some consideration to transfer the patient to Transitional Care Unit with ongoing antibiotic and the decision has not been made thus far. We are discussing with the family as well as with Dr. Gibson. Her wound culture on the left hand did grow out Staphylococcus Aureus and Cocuria Kristinae. Blood cultures are negative after three days. Today her white count has returned to normal at 7.43. Her hemoglobin normal at 9.4, hematocrit 29.9. Platelet count is normal at 2.66. Chemistry 137.6 sodium, potassium normal at 3.68, BUN 26.3, creatinine 0.94, GFR 56, AST 13.8, ALT 14, alkaline phosphatase 55.2. Overall the patient is doing better, she is pleasant. Dr. Gibson's nurse practitioner did suggest starting the patient on Xopenex neb a few times a day and this will be ordered for the patient as well. The patient will be ordered a CT of the chest now and will compare that to the initial CT of the chest. If this is improved, the patient may be discharged back to the intermediate today. Today on exam, her lungs left is clear, right has a little bit of congestion, still with a little bit of rhonchi anteriorly. Her posterior lungs were not able to be evaluated. She is not able to take a deep breath on exam. Heart is a regular rate and rhythm. She does have 1+ lower extremity edema. Further orders and recommendations per Dr. Burciaga. [facility]
--- NOTE | 2019-01-11 14:05 | DS ---
DATE OF SERVICE: 12/15/18 (TO TRANSITIONAL CARE UNIT UNDER THE SERVICES OF DR. GIBSON) DISCHARGE DIAGNOSES: 1. LARGE RIGHT TOTAL EFFUSION AND CONSOLIDATION WITH POSSIBLE PNEUMONIA AND SMALL LEFT PLEURAL EFFUSION PER RECENT CT OF THE CHEST COMPLETED ON 12/14/18 AND THIS IS A FOLLOWUP CT OF THE CHEST. 2. STAPH INFECTION TO THE LEFT HAND DORSAL ASPECTED TREATED WITH CLINDAMYCIN IV WHILE INPATIENT. 3. FEVER. 4. STATUS POST FALL WITH RIGHT HIP DISCOMFORT ON ADMISSION. THERE WAS A NEGATIVE CT OF THE ABDOMEN AND PELVIS HOWEVER WE WILL OBTAIN A RIGHT HIP X-RAY TODAY. 5. HISTORY OF ALZHEIMER'S DEMENTIA. 6. HYPERTENSION. 7. CHRONIC KIDNEY DISEASE, STAGE 3. BRIEF HISTORY OF PRESENT ILLNESS/HOSPITAL COURSE: Ms. Morales is a regular patient of the intermediate. She comes from [facility]. She did present on the date of admission December 11, 2018 status post fall. Per records it stated that the patient had fell earlier that day and seemed okay however she was patting her right hip. She did sustain a skin tear to the left hand therefore the staff felt that she needed to be evaluated in the emergency department. She was alert and talkative. She offered no complaints while in the emergency department. A workup was completed. Her white count was slightly elevated. Hemoglobin, hematocrit and platelet count were stable. A CT of the chest showed a large right pleural effusion and a right lower lobe consolidation and a left trace pleural effusion. CT of the abdomen and pelvis showed no acute osseous abnormality noted. The patient was placed on oxygen as well as given a nebulizer treatment. ABGs were drawn. An EKG was obtained as well as blood cultures and cardiac markers. The case was discussed with Dr. Burciaga and decision was made to admit the patient with concerns for the large pleural effusion and the pneumonia. Again blood work was obtained as well as blood cultures. The patient was placed on antibiotics. During the course of the stay, microbiology, cultures grew out Staphylococcus Aureus as well as Kocuria Kristinae, wound culture of the left hand. I did a dressing change on that left hand yesterday. It does appear to look better, no drainage at the site. It does appear to be improving with minimal redness. We are dressing that with Silvadene and Telfa pads securing with Coban. The patient remains on Clindamycin. Upon review of the medication list with Dr. Burciaga this morning, the patient remains on Clindamycin. Also remains on Rocephin and Azactam and all of these are continued at discharge. A right hip x-ray will be obtained. White count at discharge 7.24, hemoglobin 9.3, hematocrit 28.7. Sodium 136.1, BUN 19.9, creatinine 0.83. Troponin negative. Procalcitonin 0.11 on admission. Urinalysis showed trace hematuria otherwise negative. Discharge medications have been marked and have already been addressed. The patient will continue current medications that she is receiving inpatient as well as continuing IV antibiotics for her left hand and possible pneumonia. Discharge diet is diet as tolerated and current diet as she is inpatient. Discharge activity level is as tolerated. She has been ambulating with physical therapy in the amin. She will followup with Dr. Gibson as recommended. The patient will be discharged from Med/Surg to TCU and transferred to Dr. Gibson 's services. Vital Signs at discharge: Temperature 98.7, pulse rate 79, blood pressure 163/78, 02 sat 93% on room air, respiratory rate 18. PHYSICAL EXAMINATION: Left lung is clear, right with congestion. Heart is regular rate and rhythm. She continues to run normal sinus rhythm on telemetry with a rate of 81. She does have lower extremity edema. TIME SPENT: GREATER THAN 30 MINUTES MTDD
== END 2018-12-15 15:10 | disposition swing bed (61) | DRG 193 ==
LOC: EDBD 00:13 → ED 00:13 → MEDSURG B 02:51
PROVIDERS: ADMIT General Practice; ATTEND General Practice
DX: F02.80 Dementia in other diseases classified elsewhere, unspecified severity, without behavioral disturbance, psychotic disturbance, mood disturbance, and anxiety; N18.3 Chronic kidney disease, stage 3 (moderate); S61.412A Laceration without foreign body of left hand, initial encounter; G30.9 Alzheimer's disease, unspecified; R05 Cough; R53.1 Weakness; I10 Essential (primary) hypertension; A41.9 Sepsis, unspecified organism; R53.81 Other malaise; J18.9 Pneumonia, unspecified organism; M25.551 Pain in right hip; R50.9 Fever, unspecified; B95.8 Unspecified staphylococcus as the cause of diseases classified elsewhere; J90 Pleural effusion, not elsewhere classified

== ENCOUNTER 2019-02-09 11:03 | Outpatient (CLI) | payer OTHER ==
[2019-02-09 17:58] VITALS: BMI 23.6
== END 2019-02-09 11:09 | disposition critical access hospital (66) ==
LOC: AMBL 11:03
PROVIDERS: ATTEND Internal Medicine
DX: R05 Cough (principal); R19.7 Diarrhea, unspecified; I10 Essential (primary) hypertension; M62.81 Muscle weakness (generalized); N28.9 Disorder of kidney and ureter, unspecified; G30.9 Alzheimer's disease, unspecified; F02.80 Dementia in other diseases classified elsewhere, unspecified severity, without behavioral disturbance, psychotic disturbance, mood disturbance, and anxiety

== ENCOUNTER 2019-02-09 11:20 | Inpatient (IN) ==
--- NOTE | 2019-02-09 12:47 | ED.PDOC ---
General ED Provider: Dr. JIA CRYSTAL Chief Complaint: Cough Stated Complaint: cough shortness of breath Time Seen by Physician: 11:20 Mode of Arrival: Stretcher Information Source: [facility], EMT Exam Limitations: No limitations Primary Care Provider: ANDREY SAMS Nursing and Triage Documentation Reviewed and Agree: Yes Does patient meet sepsis criteria?: No System Inflammatory Response Syndrome: Not Applicable Sepsis Protocol: For patient's 13 years and over: Temp is 96.8 and below OR 101 and greater Pulse >90 BPM Resp >20/minute Acutely Altered Mental Status Are patient's symptoms suggestive of a new infection, such as: -Pneumonia -Skin, Soft Tissue -Endocarditis -UTI -Bone, Joint Infection -Implantable Device -Acute Abdominal Infection -Wound Infection -Meningitis -Blood Stream Catheter Infection -Unknown Respiratory Complaint Exam - Respiratory Complaint/Exam Onset/Duration: today Symptoms Are: Still present Timing: Intermittent Initial Severity: Moderate Location: Nose, Throat, Chest Aggravating: Reports: None Alleviating: Reports: None Associated Signs and Symptoms: Denies: Rapid breathing, Dyspnea, Fever, Chills, Chest pain, Pleuritic chest pain, Wheezing, Hemoptysis, Dizziness, Calf pain, Calf swelling, Edema, URI, Nasal congestion, Hoarseness, Sinus discomfort, Vomiting, Sore throat, Weight loss, Decreased oral intake, Increased thirst, Increased appetite, Increased urination History of Healthcare-Acquired Pneumonia: Lives at [facility] Related Surgical History: Reports: None Pulmonary Embolism Risk Factors: Bedrest Cardiac Risk Factors: Reports: Hypertension Pseudomonas Risk Factors: Reports: None Tuberculosis Risk Factors: Reports: None Status Asthmaticus Risk Factors: Reports: None Home Oxygen Use: No Recent Stress Test: No Recent Echo/LV Function: No Current Antibiotic Use: No Current Asthma Medication Use: No Respiratory Distress: None Inadequate Respiratory Effort: No Dysphagia Present: No Stridor Present: No JVD Present: No Accessory Muscle Use: No Retractions: Inadequate effort Diminished Breath Sounds: Yes (right) Sinus Tenderness: None Grunting Respirations: No Kussmaul Respirations: No Differential Diagnoses: CHF, COPD Exacerbation, NM, Pneumonia, Pulmonary Embolism, Bronchitis, Lower Resp. Infection Quality Indicators For Pneumonia: Empiric Antibiotic Rx Non-Traumatic Chest Pain Syncope: EKG Performed Review of Systems - Review Of Systems Constitutional: Reports: No symptoms Eyes: Reports: No symptoms Ears, Nose, Mouth, Throat: Reports: No symptoms Respiratory: Reports: Cough, Short of air Cardiac: Reports: No symptoms GI: Reports: No symptoms : Reports: No symptoms Musculoskeletal: Reports: No symptoms Skin: Reports: No symptoms Neurological: Reports: No symptoms Endocrine: Reports: No symptoms Hematologic/Lymphatic: Reports: No symptoms All Other Systems: Reviewed and Negative Past Medical History - Past Medical History Previously Healthy: Yes Endocrine: Reports: None Cardiovascular: Reports: None, Hypertension Respiratory: Reports: None, Unknown Hematological: Reports: None Gastrointestinal: Reports: None Genitourinary: Reports: None Neuro/Psych: Reports: None, Dementia Musculoskeletal: Reports: None, Back Pain, Joint Pain Cancer: Reports: None Last Menstrual Period: menopause - Surgical History General Surgical History: Reports: None - Family History Family History: Reports: None - Social History Smoking Status: Unknown if ever smoked Hx Substance Use: No Alcohol Screening: None Physical Exam - Physical Exam Appearance: Well-appearing, No pain distress, Well-nourished Eyes: AMINA, EOMI, Conjunctiva clear ENT: Ears normal, Nose normal, Oropharynx normal Respiratory: Breath sounds diminished, Rhonchi Cardiovascular: RRR, Pulses normal, No rub, No murmur GI/: Soft, Nontender, No masses, Bowel sounds normal, No Organomegaly Musculoskeletal: Normal strength, ROM intact, No edema, No calf tenderness Skin: Warm, Dry, Normal color Neurological: Sensation intact, Motor intact, Reflexes intact, Cranial nerves intact, Alert, Oriented Psychiatric: Affect appropriate, Mood appropriate Interpretation - Radiology Interpretation Radiology Interpretation By: Radiologist Radiology Results: Positive (pleural effusion) - 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 Rate: Normal Rhythm: Sinus Ectopy: None - EKG Interpretation Rate: Normal Rhythm: Sinus Ectopy: None [place]: NL ST Segment: Normal Re-Evaluation - Re-Evaluation Time of Re-Evaluation: 13:00 Status: Unchanged Vital Signs Stable: Yes Pain Level: 0 Appearance: NAD Lungs: Clear Skin: Warm and Dry Neuro: Alert and Oriented X3 CV: RRR - Re-Evaluation Time of Re-Evaluation: 14:42 Status: Unchanged Vital Signs Stable: Yes Pain Level: 0 Appearance: NAD Skin: Warm and Dry Neuro: Alert and Oriented X3 CV: RRR Physician Notification - Case Discussed Physician Notified: pmd Time of Notification: 14:42 Admit/Transition Orders Entered by ED Provider: Yes Admit To: Inpatient Critical Care Note - Critical Care Note Total Time (mins): 0 Course - Course Hematology/Chemistry: 02/09/19 11:50 02/09/19 11:50 Orders, Labs, Meds: Lab Review 02/09/19 02/09/19 02/09/19 11:37 11:50 11:50 WBC 11.93 H RBC 3.60 L Hgb 9.1 L Hct 28.7 L MCV 79.7 L MCH 25.3 L MCHC 31.7 L RDW Coeff of Kody 16.1 H Plt Count 484 H Immature Gran % (Auto) 0.7 Neut % (Auto) 76.2 Lymph % (Auto) 13.4 [place] % (Auto) 7.0 Eos % (Auto) 2.3 Baso % (Auto) 0.4 Immature Gran # (Auto) 0.1 Neut # (Auto) 9.1 H Lymph # (Auto) 1.6 [place] # (Auto) 0.8 Eos # (Auto) 0.3 Baso # (Auto) 0.1 Puncture Site Rrad O2 Saturation 96.0 ABG pH 7.433 ABG pCO2 29.6 L ABG pO2 81.0 L ABG HCO3 19.8 L ABG Total CO2 21 L ABG Base Excess -4 L Jj Test + FiO2 % 21.0 Sodium 139.0 Potassium 4.37 Chloride 110.1 H Carbon Dioxide 24.2 Anion Gap 9.07 BUN 25.8 H Creatinine 1.57 H Estimated GFR (MDRD) 31.00 BUN/Creatinine Ratio 16.43 Glucose 118.3 H Lactic Acid Calcium 7.95 L Total Bilirubin 0.20 AST 17.9 ALT 17.0 Alkaline Phosphatase 82.8 Total Creatine Kinase 52.9 Troponin I < 0.012 Total Protein 5.59 L Albumin 2.72 L Globulin 2.87 Albumin/Globulin Ratio 0.94 Procalcitonin Urine Color Urine Clarity Urine pH Ur Specific [place] Urine Protein Urine Glucose (UA) Urine Ketones Urine Blood Urine Nitrite Urine Bilirubin Urine Urobilinogen Ur Leukocyte Esterase Urine Microscopic WBC Ur Squamous Epith Cells Ur Transition Epith Cell Ur Renal Epithelial Cell Urine Bacteria Hyaline Casts Urine Mucus 02/09/19 02/09/19 02/09/19 11:50 11:50 13:40 WBC RBC Hgb Hct MCV MCH MCHC RDW Coeff of Kody Plt Count Immature Gran % (Auto) Neut % (Auto) Lymph % (Auto) [place] % (Auto) Eos % (Auto) Baso % (Auto) Immature Gran # (Auto) Neut # (Auto) Lymph # (Auto) [place] # (Auto) Eos # (Auto) Baso # (Auto) Puncture Site O2 Saturation ABG pH ABG pCO2 ABG pO2 ABG HCO3 ABG Total CO2 ABG Base Excess Jj Test FiO2 % Sodium Potassium Chloride Carbon Dioxide Anion Gap BUN Creatinine Estimated GFR (MDRD) BUN/Creatinine Ratio Glucose Lactic Acid 1.36 Calcium Total Bilirubin AST ALT Alkaline Phosphatase Total Creatine Kinase Troponin I Total Protein Albumin Globulin Albumin/Globulin Ratio Procalcitonin 0.09 Urine Color Yellow Urine Clarity Slightly Urine pH 5.5 Ur Specific [place] 1.015 Urine Protein Negative Urine Glucose (UA) Negative Urine Ketones Negative Urine Blood Negative Urine Nitrite Negative Urine Bilirubin Negative Urine Urobilinogen 0.2 Ur Leukocyte Esterase 1+ Urine Microscopic WBC 20-30 Ur Squamous Epith Cells 2-5 Ur Transition Epith Cell 2-5 Ur Renal Epithelial Cell 2-5 Urine Bacteria 3+ Hyaline Casts 30-50 Urine Mucus 2+ Orders Category Date Time Status ABG DRAW REQUEST Stat CARDIO 02/09/19 11:37 Completed EKG-(ED ONLY) Stat CARDIO 02/09/19 11:35 Completed ABG Stat LAB 02/09/19 11:37 Completed BLOOD CULTURE Stat LAB 02/09/19 12:25 Received CBC W/ AUTO DIFF Stat LAB 02/09/19 11:50 Completed COMPREHENSIVE METABOLIC PANEL Stat LAB 02/09/19 11:50 Completed CREATINE KINASE Stat LAB 02/09/19 11:50 Completed LACTIC ACID Stat LAB 02/09/19 11:50 Completed PROCALCITONIN Stat LAB 02/09/19 11:50 Completed TROPONIN I Stat LAB 02/09/19 11:50 Completed URINALYSIS C & S IF INDICATED Stat LAB 02/09/19 13:40 Completed URINE CULTURE Stat LAB 02/09/19 13:[address] ABD/PEL WO RENAL STONE PROT Stat RADS 02/09/19 11:[address] CHEST W/O CONTRAST Stat RADS 02/09/19 11:36 Completed Vital Signs: Temp Pulse Resp BP Pulse Ox 02/09/19 11:21 97.6 F 74 20 120/60 96 Departure - Departure Time of Disposition: 14:41 Disposition: ADMITTED INPATIENT Discharge Problem: Cough, Pleural effusion Pneumonia Qualifiers: Pneumonia type: due to unspecified organism Laterality: right Lung location: upper lobe of lung Qualified Code(s): J18.1 - Lobar pneumonia, unspecified organism Condition: Good Pt referred to PMD for follow-up: Yes IPMP verified?: No Allergies/Adverse Reactions: Allergies Penicillins Adverse Reaction (Verified 02/09/19 11:30) Unknown Home Medications: Ambulatory Orders Acetaminophen [Tylenol] 650 mg PO Q6H PRN 12/11/18 Amlodipine Besylate 10 mg PO DAILY 12/11/18 Bisacodyl 5 mg PO DAILY 12/11/18 Bisacodyl [Dulcolax] 10 mg RC DAILY PRN 12/11/18 Donepezil HCl [Aricept] 5 mg PO DAILY 12/11/18 Lorazepam [Ativan] 0.5 mg PO TID 12/11/18 Memantine HCl 10 mg PO BID 12/11/18 Quetiapine Fumarate [Seroquel] 50 mg PO BID 12/11/18 Metoprolol Succinate [Toprol Xl] 1 tab PO DAILY 12/15/18 Losartan Potassium [Cozaar] 50 mg PO BID #60 tablet 12/21/18 Minoxidil 2.5 mg PO BID #60 tablet 12/21/18 Furosemide 20 mg PO DAILY 02/09/19 Potassium Chloride 10 meq PO DAILY 02/09/19
--- NOTE | 2019-02-09 12:53 | CT ---
EXAM: CT chest without contrast HISTORY: Cough COMPARISON: 12/14/2018 TECHNIQUE: Multiple axial images of the chest were obtained intravenous contrast. Images were refor matted in the sagittal and coronal planes. FINDINGS: Exam is degraded by motion artifact. Similar heterogeneous thyroid. The heart is enlarged. No pericardial effusion. Coronary artery athe rosclerotic calcifications. Normal diameter aorta. Evaluation for lymphadenopathy is limited witho ut IV contrast. No pathologically enlarged lymph nodes visualized. Multiple right hilar/perihilar ca lcification/granulomas are unchanged. Redemonstrated large right pleural effusion with near complete collapse of the right lower lobe, whic h is slightly more aerated than on exam from 12/14/2018. Interval complete collapse of the right mid dle lobe. Patchy right upper lobe/apical ground-glass opacities. Right lower middle lobe peribronch ial thickening. The right middle and lower lobe bronchi are least partially occluded by tissue/debri s. Left lung is clear. No pleural effusion. No pneumothorax. No suspicious pulmonary nodule. Leeanna lar body wall edema. No acute findings within the visualized upper abdomen. See abdomen/pelvis CT report for details. No acute osseous abnormality. 11 mm ovoid lesion within the T4 vertebral body is unchanged and demon strates a subtle corduroy appearance, which is suggestive of hemangioma. Degenerative changes of the thoracolumbar spine. IMPRESSION: 1. Similar large right pleural effusion with near complete right lower and complete right middle lob e collapse and/or consolidation. Increase in the middle lobe since prior exam. Debris and/or tissue is seen within some right middle and lower lobe bronchi. 2. Patchy ground-glass opacities within the right upper lobe and aerated portion of the right lower lobes, concerning for infection. Other etiologies not excluded. 3. Cardiomegaly and atherosclerosis
--- NOTE | 2019-02-09 13:20 | CT ---
EXAM: CT Abdomen Pelvis Without contrast HISTORY: Pain COMPARISON: 12/11/2018 TECHNIQUE: CT Abdomen Pelvis performed intravenous contrast. Coronal and sagital images obtained. FINDINGS: Cardiomegaly. Large right pleural effusion with plate right middle lobe and near complete right lowe r lobe collapse versus consolidation. Debris and/or tissue within right lower lobe bronchi. Please see same day chest CT report for detail. Exam is degraded by beam-hardening artifact from the patient's arms by side. The liver, decompressed gallbladder, spleen, pancreas, a and right adrenal are unremarkable. Similar thickening of the left adrenal with calcification, likely representing remote hemorrhage. Symmetric mild bilateral perinephric fat stranding, favor senescent changes. No urolithiasis or hydronephrosi s. Exophytic low density in the left superior pole kidney is unchanged. No bowel obstruction. Possible bowel wall thickening of the distal descending/proximal transverse co senait at the hepatic flexure with mild pericolonic fat stranding. Moderate volume volume fecal retenti on within the distal colon/rectum. Normal appendix. No adenopathy. Normal diameter aorta. Extensive atherosclerotic calcifications. No abnormal fluid collection, free fluid or free air. No acute osseous abnormality. IMPRESSION: 1. Right colon wall thickening with mild fat stranding, consistent with colitis. 2. Moderate fecal retention in the distal colon and rectum. 3. Large right pleural effusion and right middle and lower lobe atelectasis/consolidation. See ches t CT report for details. 4. Cardiomegaly. Atherosclerosis.
[2019-02-09] MEDS ORDERED: DULCOLAX RC PRN (14:42)
[2019-02-09] MEDS ORDERED: TYLENOL PO PRN (14:42)
[2019-02-09] MEDS ORDERED: VANCOMYCIN 1 GM in SODIUM CHLORIDE 250 ML IV STA (14:47)
[2019-02-09] MEDS ORDERED: LEVAQUIN IV SCH (15:00)
[2019-02-09] MEDS ORDERED: D5W IV SCH (15:00)
[2019-02-09] MEDS ORDERED: ROCEPHIN 1 GM VIAL 1 GM in SODIUM CHLORIDE 50 ML IV SCH (15:00)
[2019-02-09] MEDS: SODIUM CHLORIDE 1,000 ML IV SCH (15:18)
[2019-02-09] MEDS: ATIVAN PO SCH ×2 (15:53→20:56)
[2019-02-09] MEDS: SOLU-MEDROL 40 MG IVP SCH ×2 (15:54→20:56)
[2019-02-09] MEDS ORDERED: TUSSIONEX PO STA (16:08)
[2019-02-09] MEDS: DUONEB NEB SCH ×2 (16:50→23:05)
[2019-02-09] MEDS ORDERED: ROCEPHIN 1 GM VIAL ONE (17:55)
[2019-02-09 17:58] VITALS: BMI 23.6
[2019-02-09] MEDS: NAMENDA PO SCH (20:56)
[2019-02-09] MEDS: COZAAR PO SCH (20:56)
[2019-02-09] MEDS: TUSSIONEX PO SCH (20:56)
[2019-02-09] MEDS: MINOXIDIL PO SCH (20:56)
[2019-02-09] MEDS: SEROQUEL PO SCH (20:57)
[2019-02-09] MEDS ORDERED: NON-FORMULARY MEDICATION (Quetiapine Fumarate [Seroquel] 50 MG) PO SCH (21:00)
[2019-02-10] MEDS: DUONEB NEB SCH ×4 (04:50→23:44)
[2019-02-10] MEDS: SODIUM CHLORIDE 1,000 ML IV SCH ×2 (05:16→19:01)
[2019-02-10] MEDS: LASIX TAB PO SCH (05:32)
[2019-02-10] MEDS ORDERED: NON-FORMULARY MEDICATION (Donepezil Hcl [Aricept] 5 MG) PO SCH (09:00)
[2019-02-10] MEDS ORDERED: NON-FORMULARY MEDICATION (Amlodipine Besylate [Amlodipine Besylate] 10 MG) PO SCH (09:00)
[2019-02-10] MEDS: SOLU-MEDROL 125 MG IVP SCH ×3 (09:03→21:12)
[2019-02-10] MEDS: ROCEPHIN 1 GM/50 ML D5W 1 GM in PREMIX 50 ML D5W 1 BAG IV SCH (09:04)
[2019-02-10] MEDS: MINOXIDIL PO SCH ×2 (09:05→21:17)
[2019-02-10] MEDS: ATIVAN PO SCH ×3 (09:05→21:14)
[2019-02-10] MEDS: TUSSIONEX PO SCH ×2 (09:05→21:16)
[2019-02-10] MEDS: SEROQUEL PO SCH ×2 (09:05→21:14)
[2019-02-10] MEDS: MICRO-K CAP PO SCH (09:05)
[2019-02-10] MEDS: NORVASC PO SCH (09:05)
[2019-02-10] MEDS: DULCOLAX PO SCH (09:05)
[2019-02-10] MEDS: NAMENDA PO SCH ×2 (09:06→21:16)
[2019-02-10] MEDS: TOPROL XL PO SCH (09:06)
[2019-02-10] MEDS: COZAAR PO SCH ×2 (09:06→21:14)
[2019-02-10] MEDS: ARICEPT PO SCH (09:06)
--- NOTE | 2019-02-10 09:47 | PCM.PROG ---
Attending Provider: ATTENDING PROVIDER: Dr. ANDREY SAMS This patient is seen with Mercy Bronson, Nurse Practitioner. DATE OF SERVICE: 02/10/19 SUBJECTIVE: This 88 year old WHITE/ F was hospitalized 02/09/19. The patient is resting comfortably. She has a croupy cough through night. Tussionex has been helping some. No fever. REVIEW OF SYSTEMS: CONSTITUTIONAL: No night sweats. No fatigue, malaise, lethargy. No fever or chills. HEENT: Eyes: No visual changes. No eye pain. No eye discharge. ENT: No runny nose. No epistaxis. No sinus pain. No odynophagia. No congestion. RESPIRATORY: Cough, no congestion. No hemoptysis. Shortness of breath. CARDIOVASCULAR: No angina symptoms. No CHF symptoms. No atypical chest pain for CAD. No palpitations. No orthopnea.. GASTROINTESTINAL: No abdominal pain. No nausea or vomiting. No diarrhea or constipation. No hematemesis. No hematochezia. GENITOURINARY: No urgency. No frequency. No dysuria. No hematuria. No obstructive symptoms. No discharge. No pain. No significant abnormal bleeding. MUSCULOSKELETAL: No musculoskeletal pain; no joint swelling. NEUROLOGICAL: Awake, alert, confused. No headache. No neck pain. No syncope. No seizures. No dizziness. PSYCHIATRIC: Not anxious. No depression. No suicidal thoughts. No homicidal thoughts. SKIN: No rash. No lesions. No wounds. ENDOCRINE: No unexplained weight loss. No weight gain. HEMATOLOGIC/LYMPHATIC: No anemia. No purpura. No petechiae. No prolonged or excessive bleeding. No palpable lymph nodes. PHYSICAL EXAMINATION: GENERAL: The patient is awake, alert and oriented to person only, lying in bed in no distress. VITAL SIGNS: Temperature 97.4 F, Pulse 92, Respiratory Rate 18, BP 116/51, Pulse Ox 96% HEENT: Head normocephalic, atraumatic. Eyes: Extraocular muscles are intact. Pupils are equal, round and reactive to light and accommodation. Ears: No lesions. Nose appeared normal. Throat: No exudate or erythema. NECK: Supple. No JVD, no carotid bruit. No lymphadenopathy or thyromegaly. LUNGS: Severely diminished breath sounds, right greater than left. Clear to auscultation. Percussion note normal. Chest symmetrical. HEART: S1, S2, no S3. No murmurs. No cyanosis or clubbing. No ascites. Pulses: Dorsalis pedis and posterior tibial pulses +1 to +2 both sides. ABDOMEN: Soft. Non-tender. Bowel sounds active. No CVA tenderness. No mass felt. EXTREMITIES: No edema. Full range of motion of all extremities, equal. NEUROLOGIC: No focal deficit. Cranial nerves II through XII are grossly intact. No headache, no double vision or headache. SKIN: Not dry. Intact. Turgor-normal. LYMPHATIC: No palpable lymph nodes/no lymphedema. MUSCULOSKELETAL: Normal joints with no swelling. Muscle tone is normal. LAB REVIEW: 02/10/19 04:51 02/10/19 04:51 02/10/19 04:51: Sodium 141.8, Potassium 4.33, Chloride 112.4 H, Carbon Dioxide 19.8 L, Anion Gap 13.93, BUN 25.7 H, Creatinine 1.68 H, Estimated GFR (MDRD) 29.00, BUN/Creatinine Ratio 15.29, Glucose 181.3 H D, Calcium 7.99 L, Total Bilirubin 0.14 L, AST 21.4, ALT 25.3, Alkaline Phosphatase 82.1, Total Protein 5.82 L, Albumin 2.76 L, Globulin 3.06, Albumin/Globulin Ratio 0.90 02/10/19 04:51: WBC 9.82, RBC 3.80 L, Hgb 9.4 L, Hct 30.3 L, MCV 79.7 L, MCH 24.7 L, MCHC 31.0 L, RDW Coeff of Kody 16.3 H, Plt Count 533 H, Immature Gran % ( Auto) 1.2, Neut % (Auto) 87.7, Lymph % (Auto) 10.1, [place] % (Auto) 0.8, Eos % ( Auto) 0.0, Baso % (Auto) 0.2, Immature Gran # (Auto) 0.1, Neut # (Auto) 8.6 H, Lymph # (Auto) 1.0, [place] # (Auto) 0.1 L, Eos # (Auto) 0.0, Baso # (Auto) 0.0 02/10/19 04:51: Total Creatine Kinase 37.6, Troponin I < 0.012 02/09/19 20:50: Total Creatine Kinase 42.7, Troponin I < 0.012 02/09/19 13:40: Urine Color Yellow, Urine Clarity Slightly, Urine pH 5.5, Ur Specific [place] 1.015, Urine Protein Negative, Urine Glucose (UA) Negative, Urine Ketones Negative, Urine Blood Negative, Urine Nitrite Negative, Urine Bilirubin Negative, Urine Urobilinogen 0.2, Ur Leukocyte Esterase 1+, Urine Microscopic WBC 20-30, Ur Squamous Epith Cells 2-5, Ur Transition Epith Cell 2-5 , Ur Renal Epithelial Cell 2-5, Urine Bacteria 3+, Hyaline Casts 30-50, Urine Mucus 2+ 02/09/19 11:50: Lactic Acid 1.36 02/09/19 11:50: Procalcitonin 0.09 02/09/19 11:50: Sodium 139.0, Potassium 4.37, Chloride 110.1 H, Carbon Dioxide 24.2, Anion Gap 9.07, BUN 25.8 H, Creatinine 1.57 H, Estimated GFR (MDRD) 31.00 , BUN/Creatinine Ratio 16.43, Glucose 118.3 H, Calcium 7.95 L, Total Bilirubin 0.20, AST 17.9, ALT 17.0, Alkaline Phosphatase 82.8, Total Creatine Kinase 52.9 , Troponin I < 0.012, Total Protein 5.59 L, Albumin 2.72 L, Globulin 2.87, Albumin/Globulin Ratio 0.94 02/09/19 11:50: WBC 11.93 H, RBC 3.60 L, Hgb 9.1 L, Hct 28.7 L, MCV 79.7 L, MCH 25.3 L, MCHC 31.7 L, RDW Coeff of Kody 16.1 H, Plt Count 484 H, Immature Gran % ( Auto) 0.7, Neut % (Auto) 76.2, Lymph % (Auto) 13.4, [place] % (Auto) 7.0, Eos % ( Auto) 2.3, Baso % (Auto) 0.4, Immature Gran # (Auto) 0.1, Neut # (Auto) 9.1 H, Lymph # (Auto) 1.6, [place] # (Auto) 0.8, Eos # (Auto) 0.3, Baso # (Auto) 0.1 02/09/19 11:37: Puncture Site Rrad, O2 Saturation 96.0, ABG pH 7.433, ABG pCO2 29.6 L, ABG pO2 81.0 L, ABG HCO3 19.8 L, ABG Total CO2 21 L, ABG Base Excess -4 L, Jj Test +, FiO2 % 21.0 ASSESSMENT: Please see below. 1. Right middle and lower lobe pneumonia 2. Large right pleural effusion 3. Dehydration 4. Chronic kidney disease 5. Dementia with behavioral disturbances. 6. UTI, culture pending PLAN: 1. IV Vancomycin, pharmacy to dose. 2. Increase Solu-Medrol 100mg Q 8 hours Plan and coordination of the patient's care discussed in the presence of Service Member and nurse. SCRIBED BY: KAMI PICKARD Watch Parts Inspector scribed while in presence of service performed by Dr. Sams/Mercy Bronson APRN on 02/10/19 ([id number])
--- NOTE | 2019-02-10 11:40 | PN ---
DATE OF SERVICE: 02/09/19 SUBJECTIVE: The patient is seen and examined today with nurse practitioner. The patient is hospitalized through the emergency room from the assisted with pneumonia. The patient had cough and congestion. The patient also has abnormal kidney function likely from dehydration. The patient is going to be on IV fluids, IV antibiotics and steroids. Condition is stable. Prognosis is poor. I talked to the family about her possibility of effusion, more like a collapse of the lung that could be coming on the right side from aspiration. Prognosis is poor. The patient has severe dementia with Alzheimer's disease. TIME SPENT: More than 30 minutes. Plan and coordination of the patient's care discussed in the presence of nurse. NABIL
--- NOTE | 2019-02-10 13:22 | HP ---
DATE OF SERVICE: 02/09/19 HISTORY OF PRESENT ILLNESS: This is an 88-year-old white female who is a resident of ours at [facility]. For the past 36 hours last night she had a temperature of 100.7. She has been coughing for about the past two days. This morning she had a temperature of 99, sat was down to 93%. In the past two months she has been hospitalized with pneumonia. She is sent to the emergency room for further evaluation. PAST MEDICAL HISTORY: Recurrent UTI Alzheimer's disease with behavioral disturbances Hypertension Generalized muscle weakness - she ambulates by way of a wheelchair History of respiratory failure Chronic kidney disease, Stage 2 to 3 Vitamin D deficiency Polyarthritis Aggressive behavior associated with dementia History of constipation Dysphagia PAST SURGICAL HISTORY: None reported REVIEW OF SYSTEMS: CONSTITUTIONAL: Positive for fatigue and fever. No night sweats. No malaise, lethargy. No chills. HEENT: Eyes: No visual changes. No eye pain. No eye discharge. ENT: No runny nose. No epistaxis. No sinus pain. No sore throat. No odynophagia. No ear pain. No congestion. RESPIRATORY: Positive for cough and shortness of breath. No congestion. No hemoptysis. CARDIOVASCULAR: No angina symptoms. No CHF symptoms. No atypical chest pain for CAD. No palpitations. No PND. No orthopnea. GASTROINTESTINAL: No abdominal pain. No nausea or vomiting. No diarrhea or constipation. No hematemesis. No hematochezia. GENITOURINARY: No urgency. No frequency. No dysuria. No hematuria. No obstructive symptoms. No discharge. No pain. No significant abnormal bleeding. MUSCULOSKELETAL: No musculoskeletal pain. No joint swelling. No arthritis. NEUROLOGICAL: Confusion. No headache. No neck pain. No syncope. No seizures. No dizziness. PSYCHIATRIC: Not anxious. No depression. No suicidal thoughts. No homicidal thoughts. SKIN: No rash. No lesions. No wounds. ENDOCRINE: No unexplained weight loss. No weight gain. HEMATOLOGIC/LYMPHATIC: No anemia. No purpura. No petechiae. No prolonged or excessive bleeding. No palpable lymph nodes. PERSONAL/FAMILY/SOCIAL HISTORY: She has a history of falls. She is . She is a resident of the long-term. She is a nonsmoker. MEDICATIONS: Tylenol 650 mg p.o. q.6hr p.r.n. Seroquel 50 mg p.o. b.i.d. Amlodipine 10 mg p.o. daily Memantine 10 mg p.o. b.i.d. Dulcolax 10 mg RC daily p.r.n. Bisacodyl 5 mg p.o. daily Ativan 0.5 mg p.o. t.i.d. Aricept 5 mg p.o. daily Toprol XL one tab p.o. daily Cozaar 50 mg p.o. b.i.d. Minoxidil 2.5 mg p.o. b.i.d. Potassium Chloride 10 mEq p.o. daily Furosemide 20 mg p.o. daily ALLERGIES: PENICILLINS PHYSICAL EXAMINATION: GENERAL: The patient is alert and oriented to person, not place or time. This was her baseline. Pale. HEENT: Head normocephalic, atraumatic. Eyes: Extraocular muscles are intact. Pupils are equal, round and reactive to light and accommodation. Ears: No lesions. Nose appeared normal. Throat: No exudate or erythema. NECK: Supple. No JVD, no carotid bruit. No lymphadenopathy or thyromegaly. LUNGS: Diminished breath sounds. Clear to auscultation. Percussion note normal. Chest symmetrical. HEART: S1, S2, no S3. No murmurs. No cyanosis or clubbing. No ascites. Pulses: Dorsalis pedis and posterior tibial pulses +1 to +2 bilaterally. ABDOMEN: Soft. Nontender. Bowel sounds active. No CVA tenderness. No mass felt. EXTREMITIES: No leg edema. Full range of motion of all extremities, equal. NEUROLOGIC: No focal deficit. Cranial nerves II through XII are grossly intact. No headache, no double vision or headache. SKIN: Not dry. Intact. Turgor - normal. LYMPHATIC: No palpable lymph nodes/no lymphedema. MUSCULOSKELETAL: Normal joints with no swelling. Muscle tone is normal. LAB REVIEW: White count 11.9, hemoglobin 9.1, hematocrit 28.7, platelets 484. ABGs on room air pH 7.4, pc02 29, p02 81, base excess -4, bicarb 19, TC02 21, 02 sat 96. Sodium 139, potassium 4.3, BUN 25, creatinine 1.5, glucose 118. AST 17, ALT 17, total protein 5.5, albumin 2.7. Urine is normal with exception of 1+ leuks. CT of the chest shows similar large right pleural effusion with near complete right lower and complete right middle lobe collapse and/or consolidation, increase in the middle lobe since prior exam. Patchy ground glass opacities within the right upper lobe concerning for infection, cardiomegaly, atherosclerosis. CT of the abdomen and pelvis shows right colon wall thickening consistent with colitis, moderate fecal retention. ASSESSMENT: 1. RIGHT MIDDLE AND LOWER LOBE PNEUMONIA. 2. LARGE RIGHT PLEURAL EFFUSION. 3. UTI, CULTURE PENDING. 4. SHORTNESS OF BREATH. 5. DEMENTIA WITH BEHAVIORAL DISTURBANCES. 6. HYPERTENSION. 7. ANEMIA. 8. DEHYDRATION. PLAN: 1. We will admit. 2. Routine telemetry orders. 3. CBC, CMP daily. 4. Urine for culture and sensitivity. 5. Continue home medications. 6. Normal Saline IV at 75 cc/hr. 7. Oxygen at 1 to 2L as needed. 8. Xopenex neb treatments t.i.d. scheduled. 9. Solu-Cortef 125 mg IV q.8hr. 10. Rocephin 1 gm IV daily. 11. Zithromax 500 mg p.o. daily times three days. 12. Fall precautions. 13. Regular diet. 14. Will follow closely. TIME SPENT: More than 70 minutes. MTDD
[2019-02-11] MEDS: DUONEB NEB SCH ×4 (04:43→22:40)
[2019-02-11] MEDS: SOLU-MEDROL 125 MG IVP SCH ×3 (05:50→20:39)
[2019-02-11] MEDS: LASIX TAB PO SCH (05:50)
[2019-02-11] MEDS: ROCEPHIN 1 GM/50 ML D5W 1 GM in PREMIX 50 ML D5W 1 BAG IV SCH (08:35)
[2019-02-11] MEDS: MICRO-K CAP PO SCH (08:35)
[2019-02-11] MEDS: DULCOLAX PO SCH (08:36)
[2019-02-11] MEDS: ATIVAN PO SCH ×3 (08:36→20:40)
[2019-02-11] MEDS: NORVASC PO SCH (08:36)
[2019-02-11] MEDS: SEROQUEL PO SCH ×2 (08:36→20:40)
[2019-02-11] MEDS: COZAAR PO SCH ×2 (08:36→20:40)
[2019-02-11] MEDS: NAMENDA PO SCH ×2 (08:36→20:40)
[2019-02-11] MEDS: ARICEPT PO SCH (08:36)
[2019-02-11] MEDS: TOPROL XL PO SCH (08:37)
[2019-02-11] MEDS: TUSSIONEX PO SCH ×2 (08:37→20:40)
[2019-02-11] MEDS: MINOXIDIL PO SCH ×2 (08:37→20:40)
[2019-02-11] MEDS: SODIUM CHLORIDE 1,000 ML IV SCH ×2 (08:38→11:29)
[2019-02-11] MEDS ORDERED: VANCOMYCIN 1 GM in SODIUM CHLORIDE 250 ML IV SCH (09:00)
--- NOTE | 2019-02-11 09:08 | PCM.PROG ---
Attending Provider: ATTENDING PROVIDER: Dr. ANDREY SAMS This patient is seen with Mercy Bronson, Nurse Practitioner. DATE OF SERVICE: 02/11/19 SUBJECTIVE: This 88 year old WHITE/ F was hospitalized 02/09/19. The patient is resting comfortably. Her cough has improved. No fever. UP to beside commode yesterday. REVIEW OF SYSTEMS: CONSTITUTIONAL: No night sweats. No fatigue, malaise, lethargy. No fever or chills. Weakness. HEENT: Eyes: No visual changes. No eye pain. No eye discharge. ENT: No runny nose. No epistaxis. No sinus pain. No odynophagia. No congestion. RESPIRATORY: Cough, no congestion. No hemoptysis. No shortness of breath. CARDIOVASCULAR: No angina symptoms. No CHF symptoms. No atypical chest pain for CAD. No palpitations. No orthopnea.. GASTROINTESTINAL: No abdominal pain. No nausea or vomiting. No diarrhea or constipation. No hematemesis. No hematochezia. GENITOURINARY: No urgency. No frequency. No dysuria. No hematuria. No obstructive symptoms. No discharge. No pain. No significant abnormal bleeding. MUSCULOSKELETAL: No musculoskeletal pain; no joint swelling. NEUROLOGICAL: Awake, alert, confused. No headache. No neck pain. No syncope. No seizures. No dizziness. PSYCHIATRIC: Not anxious. No depression. No suicidal thoughts. No homicidal thoughts. SKIN: No rash. No lesions. No wounds. ENDOCRINE: No unexplained weight loss. No weight gain. HEMATOLOGIC/LYMPHATIC: No anemia. No purpura. No petechiae. No prolonged or excessive bleeding. No palpable lymph nodes. PHYSICAL EXAMINATION: GENERAL: The patient is awake, alert and oriented to person, lying in bed in no distress. VITAL SIGNS: Temperature 98.0 F, Pulse 103, Respiratory Rate 18, BP 129/67, Pulse Ox 95% HEENT: Head normocephalic, atraumatic. Eyes: Extraocular muscles are intact. Pupils are equal, round and reactive to light and accommodation. Ears: No lesions. Nose appeared normal. Throat: No exudate or erythema. NECK: Supple. No JVD, no carotid bruit. No lymphadenopathy or thyromegaly. LUNGS: Diminished breath sounds. Clear to auscultation. Percussion note normal. Chest symmetrical. HEART: S1, S2, no S3. No murmurs. No cyanosis or clubbing. No ascites. Pulses: Dorsalis pedis and posterior tibial pulses +1 to +2 both sides. ABDOMEN: Soft. Non-tender. Bowel sounds active. No CVA tenderness. No mass felt. EXTREMITIES: No edema. Full range of motion of all extremities, equal. NEUROLOGIC: No focal deficit. Cranial nerves II through XII are grossly intact. No headache, no double vision or headache. SKIN: Not dry. Intact. Turgor-normal. LYMPHATIC: No palpable lymph nodes/no lymphedema. MUSCULOSKELETAL: Normal joints with no swelling. Muscle tone is normal. LAB REVIEW: 02/11/19 05:59 02/11/19 05:59 02/11/19 05:59: Vancomycin Trough 6.763 L 02/11/19 05:59: Sodium 137.2, Potassium 4.35, Chloride 112.6 H, Carbon Dioxide 19.2 L, Anion Gap 9.75, BUN 36.1 H, Creatinine 1.70 H, Estimated GFR (MDRD) 28.00, BUN/Creatinine Ratio 21.23, Glucose 153.5 H, Calcium 7.75 L, Total Bilirubin < 0.10 L, AST 19.3, ALT 16.2, Alkaline Phosphatase 67.7, Total Protein 5.52 L, Albumin 2.59 L, Globulin 2.93, Albumin/Globulin Ratio 0.88 02/11/19 05:59: WBC 18.24 H D, RBC 3.22 L, Hgb 8.2 L, Hct 25.8 L, MCV 80.1 L, MCH 25.5 L, MCHC 31.8, RDW Coeff of Kody 16.4 H, Plt Count 431, Immature Gran % ( Auto) 1.7, Neut % (Auto) 90.1, Lymph % (Auto) 5.4 L, Mclean % (Auto) 2.7, Eos % ( Auto) 0.0, Baso % (Auto) 0.1, Immature Gran # (Auto) 0.3, Neut # (Auto) 16.4 H, Lymph # (Auto) 1.0, Mclean # (Auto) 0.5, Eos # (Auto) 0.0, Baso # (Auto) 0.0 ASSESSMENT: Please see below. 1. Right middle and lower lobe pneumonia 2. Large right pleural effusion 3. Dehydration 4. Chronic kidney disease 5. Dementia with behavioral disturbances. 6. UTI, culture pending 7. Anemia PLAN: 1. Decrease fluid to 50 2. Last dose of Vancomycin today 3. Anemia likely due to hemodilution. Plan and coordination of the patient's care discussed in the presence of Window And Door Installer and nurse. SCRIBED BY: Aristides ALBRIGHTist scribed while in presence of service performed by Dr. Sams/Mercy Bronson APRN on 02/11/19 ([id number])
[2019-02-12] MEDS: DUONEB NEB SCH ×4 (04:43→22:13)
[2019-02-12] MEDS: SOLU-MEDROL 125 MG IVP SCH ×3 (05:48→20:54)
[2019-02-12] MEDS: LASIX TAB PO SCH (05:48)
[2019-02-12] MEDS: NORVASC PO SCH (08:19)
[2019-02-12] MEDS: TUSSIONEX PO SCH ×2 (08:19→20:57)
[2019-02-12] MEDS: ROCEPHIN 1 GM/50 ML D5W 1 GM in PREMIX 50 ML D5W 1 BAG IV SCH (08:19)
[2019-02-12] MEDS: DULCOLAX PO SCH (08:19)
[2019-02-12] MEDS: NAMENDA PO SCH ×2 (08:20→20:50)
[2019-02-12] MEDS: MINOXIDIL PO SCH ×2 (08:20→20:51)
[2019-02-12] MEDS: TOPROL XL PO SCH (08:20)
[2019-02-12] MEDS: SEROQUEL PO SCH ×2 (08:20→20:49)
[2019-02-12] MEDS: COZAAR PO SCH ×2 (08:20→20:50)
[2019-02-12] MEDS: ATIVAN PO SCH ×3 (08:20→20:49)
[2019-02-12] MEDS: ARICEPT PO SCH (08:20)
[2019-02-12] MEDS: MICRO-K CAP PO SCH (08:20)
[2019-02-12] MEDS: SODIUM CHLORIDE 1,000 ML IV SCH (12:27)
[2019-02-12] MEDS: BACTROBAN TP SCH (21:03)
[2019-02-13] MEDS: DUONEB NEB SCH ×3 (04:50→17:40)
[2019-02-13] MEDS: LASIX TAB PO SCH (05:32)
[2019-02-13] MEDS: SOLU-MEDROL 125 MG IVP SCH ×3 (05:32→20:26)
[2019-02-13] MEDS: MICRO-K CAP PO SCH (08:39)
[2019-02-13] MEDS: ROCEPHIN 1 GM/50 ML D5W 1 GM in PREMIX 50 ML D5W 1 BAG IV SCH (08:39)
[2019-02-13] MEDS: TUSSIONEX PO SCH ×2 (08:39→20:30)
[2019-02-13] MEDS: TOPROL XL PO SCH (08:40)
[2019-02-13] MEDS: NAMENDA PO SCH ×2 (08:40→20:29)
[2019-02-13] MEDS: MINOXIDIL PO SCH ×2 (08:40→20:29)
[2019-02-13] MEDS: SEROQUEL PO SCH ×2 (08:40→20:28)
[2019-02-13] MEDS: ARICEPT PO SCH (08:40)
[2019-02-13] MEDS: COZAAR PO SCH ×2 (08:40→20:29)
[2019-02-13] MEDS: NORVASC PO SCH (08:40)
[2019-02-13] MEDS: ATIVAN PO SCH ×3 (08:40→20:28)
[2019-02-13] MEDS: DULCOLAX PO SCH (08:40)
[2019-02-13] MEDS: SODIUM CHLORIDE 1,000 ML IV SCH (08:48)
[2019-02-13] MEDS: BACTROBAN TP SCH ×2 (09:43→20:31)
[2019-02-14] MEDS: DUONEB NEB SCH ×5 (00:04→23:03)
[2019-02-14] MEDS: SOLU-MEDROL 125 MG IVP SCH ×3 (04:12→21:36)
[2019-02-14] MEDS: LASIX TAB PO SCH (05:58)
[2019-02-14] MEDS: SODIUM CHLORIDE 1,000 ML IV SCH (06:36)
[2019-02-14] MEDS: TUSSIONEX PO SCH ×2 (08:13→21:36)
[2019-02-14] MEDS: ROCEPHIN 1 GM/50 ML D5W 1 GM/50 ML BAG IV SCH (08:13)
[2019-02-14] MEDS: SEROQUEL PO SCH ×2 (08:14→21:37)
[2019-02-14] MEDS: NAMENDA PO SCH ×2 (08:14→21:37)
[2019-02-14] MEDS: NORVASC PO SCH (08:14)
[2019-02-14] MEDS: ARICEPT PO SCH (08:14)
[2019-02-14] MEDS: DULCOLAX PO SCH (08:14)
[2019-02-14] MEDS: COZAAR PO SCH ×2 (08:15→21:37)
[2019-02-14] MEDS: ATIVAN PO SCH ×3 (08:15→21:37)
[2019-02-14] MEDS: MINOXIDIL PO SCH ×2 (08:15→21:37)
[2019-02-14] MEDS: MICRO-K CAP PO SCH (08:15)
[2019-02-14] MEDS: TOPROL XL PO SCH (08:17)
[2019-02-14] MEDS: BACTROBAN TP SCH ×2 (08:25→21:42)
--- NOTE | 2019-02-14 08:39 | PCM.PROG ---
Attending Provider: ATTENDING PROVIDER: Dr. ANDREY SAMS This patient is seen with Mercy Bronson, Nurse Practitioner. DATE OF SERVICE: 02/14/19 SUBJECTIVE: This 88 year old WHITE/ F was hospitalized 02/09/19. The patient is lying in bed resting comfortably. Kidney function worsening despite slow IV fluids. She is still coughing. REVIEW OF SYSTEMS: CONSTITUTIONAL: No night sweats. No fatigue, malaise, lethargy. No fever or chills. HEENT: Eyes: No visual changes. No eye pain. No eye discharge. ENT: No runny nose. No epistaxis. No sinus pain. No odynophagia. No congestion. RESPIRATORY: Cough. No congestion. No hemoptysis. No shortness of breath. CARDIOVASCULAR: No angina symptoms. No CHF symptoms. No atypical chest pain for CAD. No palpitations. No orthopnea.. GASTROINTESTINAL: No abdominal pain. No nausea or vomiting. No diarrhea or constipation. No hematemesis. No hematochezia. GENITOURINARY: No urgency. No frequency. No dysuria. No hematuria. No obstructive symptoms. No discharge. No pain. No significant abnormal bleeding. MUSCULOSKELETAL: No musculoskeletal pain; no joint swelling. NEUROLOGICAL: Awake, alert, confusion. No headache. No neck pain. No syncope. No seizures. No dizziness. PSYCHIATRIC: Not anxious. No depression. No suicidal thoughts. No homicidal thoughts. SKIN: No rash. No lesions. No wounds. ENDOCRINE: No unexplained weight loss. No weight gain. HEMATOLOGIC/LYMPHATIC: No anemia. No purpura. No petechiae. No prolonged or excessive bleeding. No palpable lymph nodes. PHYSICAL EXAMINATION: GENERAL: The patient is awake, alert, confused lying/sitting in bed in no distress. VITAL SIGNS: Temperature 98.3 F, Pulse 99, Respiratory Rate 20, BP 148/75, Pulse Ox 93% HEENT: Head normocephalic, atraumatic. Eyes: Extraocular muscles are intact. Pupils are equal, round and reactive to light and accommodation. Ears: No lesions. Nose appeared normal. Throat: No exudate or erythema. NECK: Supple. No JVD, no carotid bruit. No lymphadenopathy or thyromegaly. LUNGS: Diminished breath sounds. Clear to auscultation. Percussion note normal. Chest symmetrical. HEART: S1, S2, no S3. No murmurs. No cyanosis or clubbing. No ascites. Pulses: Dorsalis pedis and posterior tibial pulses +1 to +2 both sides. ABDOMEN: Soft. Non-tender. Bowel sounds active. No CVA tenderness. No mass felt. EXTREMITIES: No edema. Full range of motion of all extremities, equal. NEUROLOGIC: No focal deficit. Cranial nerves II through XII are grossly intact. No headache, no double vision or headache. SKIN: Not dry. Intact. Turgor-normal. LYMPHATIC: No palpable lymph nodes/no lymphedema. MUSCULOSKELETAL: Normal joints with no swelling. Muscle tone is normal. LAB REVIEW: 02/14/19 04:45 02/14/19 04:45 02/14/19 04:45: Sodium 136.9, Potassium 5.01, Chloride 112.0 H, Carbon Dioxide 19.5 L, Anion Gap 10.41, BUN 55.9 H, Creatinine 1.74 H, Estimated GFR (MDRD) 28.00, BUN/Creatinine Ratio 32.12, Glucose 137.2 H, Calcium 8.22 L, Total Bilirubin 0.17 L, AST 23.1, ALT 20.3, Alkaline Phosphatase 65.2, Total Protein 5.28 L, Albumin 2.70 L, Globulin 2.58, Albumin/Globulin Ratio 1.04 02/14/19 04:45: WBC 26.49 H D, RBC 3.51 L, Hgb 8.8 L, Hct 27.7 L, MCV 78.9 L, MCH 25.1 L, MCHC 31.8, RDW Coeff of Kody 17.0 H, Plt Count 410, Immature Gran % ( Auto) 3.8, Neut % (Auto) 88.1, Lymph % (Auto) 3.5 L, Sanders % (Auto) 4.4, Eos % ( Auto) 0.0, Baso % (Auto) 0.2, Immature Gran # (Auto) 1.0, Neut # (Auto) 23.4 H, Lymph # (Auto) 0.9, Sanders # (Auto) 1.2, Eos # (Auto) 0.0, Baso # (Auto) 0.0 ASSESSMENT: Please see below. 1. Right middle and lower lobe pneumonia 2. Large right pleural effusion 3. Dehydration 4. Chronic kidney disease 5. Dementia with behavioral disturbances. 6. UTI, culture pending 7. Anemia PLAN: 1. Repeat chest x-ray. Plan and coordination of the patient's care discussed in the presence of Automotive Mechanical Engineer and nurse. CONDITION: Stable SCRIBED BY: Aristides MCKEONist scribed while in presence of service performed by Dr. Sams/Mercy Bronson APRN on 02/14/19 ([id number])
--- NOTE | 2019-02-14 11:57 | PN ---
DATE OF SERVICE: 02/11/19 SUBJECTIVE: The patient was seen and examined with the nurse practitioner The patient has been treated for pneumonia with IV antibiotics. Rocephin is being continued. Vancomycin is being held because of abnormal kidney functions. The patient is not in distress at all. She is able to carry on a conversation with mild coughing event. The patient is DNR. Clinically condition seems to be improving. TIME SPENT: More than 30 minutes. Plan and coordination of the patient's care discussed in the presence of nurse. NABIL
--- NOTE | 2019-02-14 12:39 | DI ---
EXAM: Frontal chest HISTORY: Persistent cough, elevated WBC, rales. FINDINGS: Compared to 12/20/2018. Cardiomegaly is again suggested. There is at least mild atherosc lerotic disease. There is significant density in the right base. No vascular congestion. Cannot ex clude right pleural fluid. No pneumothorax IMPRESSION: 1. Right base density suggesting consolidation which could indicate pneumonia or atelectasis. Canno t exclude a right pleural effusion.
--- NOTE | 2019-02-14 13:17 | PN ---
DATE OF SERVICE: 02/12/19 SUBJECTIVE: 88-year-old white female hospitalized with pneumonia, pleural effusion, right- sided with renal failure. The patient is not in any distress. She is alert but confused. PHYSICAL EXAMINATION: VITAL SIGNS: Temperature 97, pulse 100/min, respiratory rate 16, blood pressure 124/64, pulse ox 93% on room air. The patient looks somewhat pale. HEENT: Head normocephalic, atraumatic. Eyes: Extraocular muscles are intact. Pupils are equal, round and reactive to light and accommodation. Ears: No lesions. Nose appeared normal. Throat: No exudate or erythema. NECK: Supple. No JVD, no carotid bruit. No lymphadenopathy or thyromegaly. LUNGS: Decreased breath sounds on the right side. Left side has good air entry. Clear to auscultation. Percussion note normal. Chest symmetrical. HEART: S1, S2, no S3. No murmurs. No cyanosis or clubbing. No ascites. Pulses: Dorsalis pedis and posterior tibial pulses +1 to +2 bilaterally. ABDOMEN: Soft. Nontender. Bowel sounds active. No CVA tenderness. No mass felt. EXTREMITIES: No edema. Full range of motion of all extremities, equal. NEUROLOGIC: No focal deficit. Cranial nerves II through XII are grossly intact. No headache, no double vision or headache. SKIN: Dry. Intact. Turgor - normal. LYMPHATIC: No palpable lymph nodes/no lymphedema. MUSCULOSKELETAL: Normal joints with no swelling. Muscle tone is normal. LABS: Hemoglobin 8.9, hematocrit 28, WBC 19,000, normal differential. Creatinine 1.8, BUN 42. Potassium 4.6. ASSESSMENT: 1. Right-sided pneumonia/atelectasis/effusion. 2. Renal failure. 3. Dementia. 4. Anemia. PLAN: 1. Continue IV antibiotics. 2. The patient has MRSA which will be treated with Bactroban. 3. IV fluids to be given slowly so not to overload the cardiovascular system. CONDITION: Stable. PROGNOSIS: Poor. TIME SPENT: More than 30 minutes. Plan and coordination of the patient's care discussed in the presence of nurse. NABIL
--- NOTE | 2019-02-14 13:23 | PN ---
DATE OF SERVICE: 02/13/19 SUBJECTIVE: 88-year-old white female seen today. The patient has history of pneumonia and pleural effusion. The patient's condition seems to be stabilizing. Doesn't seem to be improving the way it should. Kidney function is somewhat better. Hyperkalemia noted. The patient is on slow IV drip. She is resting. She is alert , in no distress. PHYSICAL EXAMINATION: VITAL SIGNS: Temperature 98, pulse 81, respiratory rate 20, blood pressure 144/ 64, pulse ox 95%. The patient is confused, disoriented to place and time. HEENT: Head normocephalic, atraumatic. Eyes: Extraocular muscles are intact. Pupils are equal, round and reactive to light and accommodation. Ears: No lesions. Nose appeared normal. Throat: No exudate or erythema. NECK: Supple. No JVD, no carotid bruit. No lymphadenopathy or thyromegaly. LUNGS: Decreased breath sounds on right side. Clear to auscultation. Percussion note normal. Chest symmetrical. HEART: S1, S2, no S3. No murmurs. No cyanosis or clubbing. No ascites. Pulses: Dorsalis pedis and posterior tibial pulses +1 to +2 bilaterally. ABDOMEN: Soft. Nontender. Bowel sounds active. No CVA tenderness. No mass felt. EXTREMITIES: No edema. Full range of motion of all extremities, equal. NEUROLOGIC: No focal deficit. Cranial nerves II through XII are grossly intact. No headache, no double vision or headache. SKIN: Not dry. Intact. Turgor - normal. LYMPHATIC: No palpable lymph nodes/no lymphedema. MUSCULOSKELETAL: Normal joints with no swelling. Muscle tone is normal. LABS: Hemoglobin 8.7, hematocrit 27, WBC 20,000, normal differential. Creatinine 1.8, BUN 51, potassium 5.1. ASSESSMENT: 1. PNEUMONIA RIGHT-SIDED WITH EFFUSION AND ATELECTASIS. 2. RENAL FAILURE BARELY SHOWN SOME IMPROVEMENT. HYDRATION STATUS HAS IMPROVED. 3. DEMENTIA. 4. SEVERE ANEMIA. 5. HYPERKALEMIA. PLAN: 1. Continue IV fluids. 2. Continue IV antibiotics. PROGNOSIS: Not good. TIME SPENT: More than 30 minutes. Plan and coordination of the patient's care discussed in the presence of nurse. NABIL
[2019-02-15] MEDS: SOLU-MEDROL 125 MG IVP SCH ×3 (04:40→20:35)
[2019-02-15] MEDS: DUONEB NEB SCH ×4 (05:05→23:13)
[2019-02-15] MEDS: LASIX TAB PO SCH (05:56)
[2019-02-15] MEDS: SODIUM CHLORIDE 1,000 ML IV SCH (06:00)
[2019-02-15] MEDS ORDERED: ZITHROMAX 500 MG in SODIUM CHLORIDE 250 ML IV SCH (09:00)
--- NOTE | 2019-02-15 09:09 | PCM.PROG ---
Attending Provider: ATTENDING PROVIDER: Dr. ANDREY SAMS This patient is seen with Mercy Bronson, Nurse Practitioner. DATE OF SERVICE: 02/15/19 SUBJECTIVE: This 88 year old WHITE/ F was hospitalized 02/09/19. The patient is resting comfortably. She still has dry cough. White count continues to increase. Kidney function slightly improved. Repeat chest -ray slightly improved. REVIEW OF SYSTEMS: CONSTITUTIONAL: No night sweats. No fatigue, malaise, lethargy. No fever or chills. HEENT: Eyes: No visual changes. No eye pain. No eye discharge. ENT: No runny nose. No epistaxis. No sinus pain. No odynophagia. No congestion. RESPIRATORY: Cough and congestion. No hemoptysis. No shortness of breath. CARDIOVASCULAR: No angina symptoms. No CHF symptoms. No atypical chest pain for CAD. No palpitations. No orthopnea.. GASTROINTESTINAL: No abdominal pain. No nausea or vomiting. No diarrhea or constipation. No hematemesis. No hematochezia. GENITOURINARY: No urgency. No frequency. No dysuria. No hematuria. No obstructive symptoms. No discharge. No pain. No significant abnormal bleeding. MUSCULOSKELETAL: No musculoskeletal pain; no joint swelling. NEUROLOGICAL: Awake, alert, confusion. No headache. No neck pain. No syncope. No seizures. No dizziness. PSYCHIATRIC: Not anxious. No depression. No suicidal thoughts. No homicidal thoughts. SKIN: No rash. No lesions. No wounds. ENDOCRINE: No unexplained weight loss. No weight gain. HEMATOLOGIC/LYMPHATIC: No anemia. No purpura. No petechiae. No prolonged or excessive bleeding. No palpable lymph nodes. PHYSICAL EXAMINATION: GENERAL: The patient is awake, confused lying/sitting in bed in no distress. VITAL SIGNS: Temperature 98 F, Pulse 92, Respiratory Rate 20, BP 121/65, Pulse Ox 95% HEENT: Head normocephalic, atraumatic. Eyes: Extraocular muscles are intact. Pupils are equal, round and reactive to light and accommodation. Ears: No lesions. Nose appeared normal. Throat: No exudate or erythema. NECK: Supple. No JVD, no carotid bruit. No lymphadenopathy or thyromegaly. LUNGS: Diminished breath sounds. Clear to auscultation. Percussion note normal. Chest symmetrical. HEART: S1, S2, no S3. No murmurs. No cyanosis or clubbing. No ascites. Pulses: Dorsalis pedis and posterior tibial pulses +1 to +2 both sides. ABDOMEN: Soft. Non-tender. Bowel sounds active. No CVA tenderness. No mass felt. EXTREMITIES: No edema. Full range of motion of all extremities, equal. NEUROLOGIC: No focal deficit. Cranial nerves II through XII are grossly intact. No headache, no double vision or headache. SKIN: Not dry. Intact. Turgor-normal. LYMPHATIC: No palpable lymph nodes/no lymphedema. MUSCULOSKELETAL: Normal joints with no swelling. Muscle tone is normal. LAB REVIEW: 02/15/19 05:00 02/15/19 05:00 02/15/19 05:00: Sodium 137.4, Potassium 4.73, Chloride 112.8 H, Carbon Dioxide 20.4 L, Anion Gap 8.93, BUN 57.5 H, Creatinine 1.60 H, Estimated GFR (MDRD) 30.00, BUN/Creatinine Ratio 35.93, Glucose 176.2 H, Calcium 8.13 L, Total Bilirubin 0.17 L, AST 21.9, ALT 32.7, Alkaline Phosphatase 86.5, Total Protein 5.18 L, Albumin 2.61 L, Globulin 2.57, Albumin/Globulin Ratio 1.01 02/15/19 05:00: WBC 35.64 H D, RBC 3.46 L, Hgb 8.8 L, Hct 27.4 L, MCV 79.2 L, MCH 25.4 L, MCHC 32.1, RDW Coeff of Kody 17.0 H, Plt Count 385, Neutrophils % ( Manual) 94.0 H, Lymphocytes % (Manual) 6.0 L, Anisocytosis Not present ASSESSMENT: Please see below. 1. Right middle and lower lobe pneumonia 2. Large right pleural effusion 3. Dehydration 4. Chronic kidney disease 5. Dementia with behavioral disturbances. 6. UTI, culture pending 7. Anemia 8. Positive for MRSA, wound on right leg PLAN: 1. Zithromax 500 mg IV daily times three days. 2. D/C IV fluids. 3. At this point, I feel her window for improvement is rather small given she is immobile, likely having chronic aspiration but is unable to complete a swallow evaluation. Plan and coordination of the patient's care discussed in the presence of Lime Kiln Worker and nurse. CONDITION: STABLE; PROGNOSIS IS POOR. SCRIBED BY: ORI MCNAIR Recoater scribed while in presence of service performed by Dr. Sams/Mercy Bronson APRN on 02/15/19 ([id number])
[2019-02-15] MEDS: ROCEPHIN 1 GM/50 ML D5W 1 GM/50 ML BAG IV SCH (09:30)
[2019-02-15] MEDS: BACTROBAN TP SCH (09:33)
[2019-02-15] MEDS: TUSSIONEX PO SCH ×2 (09:34→20:35)
[2019-02-15] MEDS: TOPROL XL PO SCH (09:35)
[2019-02-15] MEDS: ATIVAN PO SCH ×3 (09:35→20:35)
[2019-02-15] MEDS: ARICEPT PO SCH (09:35)
[2019-02-15] MEDS: NORVASC PO SCH (09:35)
[2019-02-15] MEDS: DULCOLAX PO SCH (09:35)
[2019-02-15] MEDS: MICRO-K CAP PO SCH (09:36)
[2019-02-15] MEDS: NAMENDA PO SCH ×2 (09:36→20:36)
[2019-02-15] MEDS: COZAAR PO SCH ×2 (09:36→20:35)
[2019-02-15] MEDS: SEROQUEL PO SCH ×2 (09:36→20:36)
[2019-02-15] MEDS: MINOXIDIL PO SCH ×2 (09:36→20:36)
[2019-02-15] MEDS: ZITHROMAX 500 MG in SODIUM CHLORIDE 250 ML IV SCH (10:40)
[2019-02-16] MEDS: SOLU-MEDROL 125 MG IVP SCH ×3 (04:46→20:34)
[2019-02-16] MEDS: DUONEB NEB SCH ×4 (05:15→22:58)
[2019-02-16] MEDS: LASIX TAB PO SCH (05:35)
--- NOTE | 2019-02-16 08:31 | PCM.PROG ---
Attending Provider: ATTENDING PROVIDER: Dr. ANDREY SAMS DATE OF SERVICE: 02/16/19 SUBJECTIVE: This 88 year old WHITE/ F was hospitalized 02/09/19 with pneumonia and pleural effusion. Initially the patient's condition improved with overall status of kidney. It looks like she has developed colitis with CT of the abdomen along with other findings. WBC count is 45,000. Over all status has been unchanged. REVIEW OF SYSTEMS: CONSTITUTIONAL: No night sweats. No fatigue, malaise, lethargy. No fever or chills. HEENT: Eyes: No visual changes. No eye pain. No eye discharge. ENT: No runny nose. No epistaxis. No sinus pain. No odynophagia. No congestion. RESPIRATORY: No cough, no congestion. No hemoptysis. No shortness of breath. CARDIOVASCULAR: No angina symptoms. No CHF symptoms. No atypical chest pain for CAD. No palpitations. No orthopnea.. GASTROINTESTINAL: No abdominal pain. No nausea or vomiting. No diarrhea or constipation. No hematemesis. No hematochezia. GENITOURINARY: No urgency. No frequency. No dysuria. No hematuria. No obstructive symptoms. No discharge. No pain. No significant abnormal bleeding. MUSCULOSKELETAL: No musculoskeletal pain; no joint swelling. NEUROLOGICAL: Awake, alert, oriented to time, place and person. No headache. No neck pain. No syncope. No seizures. No dizziness. PSYCHIATRIC: Not anxious. No depression. No suicidal thoughts. No homicidal thoughts. SKIN: No rash. No lesions. No wounds. ENDOCRINE: No unexplained weight loss. No weight gain. HEMATOLOGIC/LYMPHATIC: No anemia. No purpura. No petechiae. No prolonged or excessive bleeding. No palpable lymph nodes. PHYSICAL EXAMINATION: GENERAL: The patient is awake, alert and oriented, lying in bed in no distress. VITAL SIGNS: Temperature 97.8 F, Pulse 82, Respiratory Rate 20, BP 124/69, Pulse Ox 94% HEENT: Head normocephalic, atraumatic. Eyes: Extraocular muscles are intact. Pupils are equal, round and reactive to light and accommodation. Ears: No lesions. Nose appeared normal. Throat: No exudate or erythema. NECK: Supple. No JVD, no carotid bruit. No lymphadenopathy or thyromegaly. LUNGS: Decreased breath sounds right side. Clear to auscultation. Percussion note normal. Chest symmetrical. HEART: S1, S2, no S3. No murmurs. No cyanosis or clubbing. No ascites. Pulses: Dorsalis pedis and posterior tibial pulses +1 to +2 both sides. ABDOMEN: Soft. Non-tender. Bowel sounds active. No CVA tenderness. No mass felt. EXTREMITIES: Edema of thighs and legs. Full range of motion of all extremities , equal. NEUROLOGIC: No focal deficit. Cranial nerves II through XII are grossly intact. No headache, no double vision or headache. SKIN: Warm and dry. Intact. Turgor-normal. LYMPHATIC: No palpable lymph nodes/no lymphedema. MUSCULOSKELETAL: Normal joints with no swelling. Muscle tone is normal. LAB REVIEW: 02/16/19 05:40 02/16/19 05:40 02/16/19 05:40: Sodium 138.1, Potassium 4.98, Chloride 111.8 H, Carbon Dioxide 20.7 L, Anion Gap 10.58, BUN 61.3 H*, Creatinine 1.68 H, Estimated GFR (MDRD) 29.00, BUN/Creatinine Ratio 36.48, Glucose 149.7 H, Calcium 8.23 L, Total Bilirubin 0.20, AST 18.1, ALT 30.7, Alkaline Phosphatase 86.2, Total Protein 5.36 L, Albumin 2.68 L, Globulin 2.68, Albumin/Globulin Ratio 1.00 02/16/19 05:40: WBC 41.05 H D, RBC 3.79 L, Hgb 9.7 L, Hct 30.2 L, MCV 79.7 L, MCH 25.6 L, MCHC 32.1, RDW Coeff of Kody 17.6 H, Plt Count 366, Neutrophils % ( Manual) 95.0 H, Lymphocytes % (Manual) 3.0 L, Monocytes % (Manual) 2.0, Anisocytosis Not present ASSESSMENT: Please see below. 1. Pneumonia seems to be stable with no change with antibiotic treatment. 2. Colitis noted with increase in WBC count, will treat for c-diff PLAN: 1. Give Flagyl 2. Will hold IV fluids for now 3. Continue Zithromax 4. Discontinue Rocephin Plan and coordination of the patient's care discussed in the presence of Content Designer and nurse. SCRIBED BY: KAMI PICKARD, Candy Packer scribed while in presence of service performed by Dr. ADNREY SAMS on 02/16/19 ([id number])
[2019-02-16] MEDS: ARICEPT PO SCH (09:30)
[2019-02-16] MEDS: FLAGYL 500 MG/100 ML 500 MG in PREMIX 100 ML NS 1 BAG IV SCH ×3 (09:31→20:33)
[2019-02-16] MEDS: ZITHROMAX 500 MG in SODIUM CHLORIDE 250 ML IV SCH (09:31)
[2019-02-16] MEDS: MINOXIDIL PO SCH ×2 (09:32→20:34)
[2019-02-16] MEDS: MICRO-K CAP PO SCH (09:32)
[2019-02-16] MEDS: SEROQUEL PO SCH ×2 (09:32→20:34)
[2019-02-16] MEDS: COZAAR PO SCH ×2 (09:32→20:33)
[2019-02-16] MEDS: TUSSIONEX PO SCH ×2 (09:33→20:35)
[2019-02-16] MEDS: NORVASC PO SCH (09:33)
[2019-02-16] MEDS: TOPROL XL PO SCH (09:33)
[2019-02-16] MEDS: DULCOLAX PO SCH (09:33)
[2019-02-16] MEDS: NAMENDA PO SCH ×2 (09:33→20:33)
[2019-02-16] MEDS: ATIVAN PO SCH ×3 (09:33→20:34)
[2019-02-16] MEDS: ROCEPHIN 1 GM/50 ML D5W 1 GM/50 ML BAG IV SCH (09:34)
--- NOTE | 2019-02-16 13:01 | PN ---
DATE OF SERVICE: 02/14/19 SUBJECTIVE: The patient's condition seems to be deteriorating. The patient's right sided pneumonia continues to persists with chest x-ray. The patient is chronically aspirating. She lays on the right. The left side lung auscultation is clear. The patient is demented and unable to walk. Bed ridden. Continue antibiotics. PROGNOSIS: Poor TIME SPENT: More than 30 minutes. Plan and coordination of the patient's care discussed in the presence of nurse. NABIL
--- NOTE | 2019-02-16 13:27 | PN ---
DATE OF SERVICE: 02/15/19 SUBJECTIVE: The patient was seen and examined with the Nurse Practitioner. The patient's condition is deteriorating. WBC is going up. The patient lays on her right side and she is mostly sleepy. Cardiovascular status seems to be stable with no evidence of CHF but x-ray didn't show any change. The patient very likely is chronically aspirating. She is practically bedridden. Demented. Continue IV antibiotics PROGNOSIS: Poor TIME SPENT: More than 30 minutes. Plan and coordination of the patient's care discussed in the presence of nurse. NABIL
[2019-02-17] MEDS: DUONEB NEB SCH ×3 (05:05→20:38)
[2019-02-17] MEDS: SOLU-MEDROL 125 MG IVP SCH (05:09)
[2019-02-17] MEDS: FLAGYL 500 MG/100 ML 500 MG in PREMIX 100 ML NS 1 BAG IV SCH ×3 (05:09→21:07)
[2019-02-17] MEDS: LASIX TAB PO SCH (05:34)
[2019-02-17] MEDS ORDERED: LASIX IVP STA (08:10)
--- NOTE | 2019-02-17 08:18 | PCM.PROG ---
Attending Provider: ATTENDING PROVIDER: Dr. ANDREY SAMS This patient is seen with Mercy Bronson, Nurse Practitioner. DATE OF SERVICE: 02/17/19 SUBJECTIVE: This 88 year old WHITE/ F was hospitalized 02/09/19. The patient is resting comfortably. White count continues to climb. The patient has been afebrile. No loose stools. BUN slightly worse today. REVIEW OF SYSTEMS: CONSTITUTIONAL: No night sweats. No fatigue, malaise, lethargy. No fever or chills. Weakness. HEENT: Eyes: No visual changes. No eye pain. No eye discharge. ENT: No runny nose. No epistaxis. No sinus pain. No odynophagia. No congestion. RESPIRATORY: No cough, no congestion. No hemoptysis. No shortness of breath. CARDIOVASCULAR: No angina symptoms. No CHF symptoms. No atypical chest pain for CAD. No palpitations. No orthopnea.. GASTROINTESTINAL: No abdominal pain. No nausea or vomiting. No diarrhea or constipation. No hematemesis. No hematochezia. GENITOURINARY: No urgency. No frequency. No dysuria. No hematuria. No obstructive symptoms. No discharge. No pain. No significant abnormal bleeding. MUSCULOSKELETAL: No musculoskeletal pain; no joint swelling. NEUROLOGICAL: Confusion. No headache. No neck pain. No syncope. No seizures. No dizziness. PSYCHIATRIC: Not anxious. No depression. No suicidal thoughts. No homicidal thoughts. SKIN: No rash. No lesions. No wounds. Edema. ENDOCRINE: No unexplained weight loss. No weight gain. HEMATOLOGIC/LYMPHATIC: No anemia. No purpura. No petechiae. No prolonged or excessive bleeding. No palpable lymph nodes. PHYSICAL EXAMINATION: GENERAL: The patient is awake and oriented to person, lying in bed in no distress. VITAL SIGNS: Temperature 97.8 F, Pulse 79, Respiratory Rate 18, BP 133/64, Pulse Ox 93% HEENT: Head normocephalic, atraumatic. Eyes: Extraocular muscles are intact. Pupils are equal, round and reactive to light and accommodation. Ears: No lesions. Nose appeared normal. Throat: No exudate or erythema. NECK: Supple. No JVD, no carotid bruit. No lymphadenopathy or thyromegaly. LUNGS: Diminished breath sounds. Clear to auscultation. Percussion note normal. Chest symmetrical. HEART: S1, S2, no S3. No murmurs. No cyanosis or clubbing. No ascites. Pulses: Dorsalis pedis and posterior tibial pulses +1 to +2 both sides. ABDOMEN: Soft. Non-tender. Bowel sounds active. No CVA tenderness. No mass felt. EXTREMITIES: Generalized edema arms and legs. Full range of motion of all extremities, equal. NEUROLOGIC: No focal deficit. Cranial nerves II through XII are grossly intact. No headache, no double vision or headache. SKIN: Not dry. Intact. Turgor-normal. LYMPHATIC: No palpable lymph nodes/no lymphedema. MUSCULOSKELETAL: Normal joints with no swelling. Muscle tone is normal. LAB REVIEW: 02/17/19 05:32 02/17/19 05:32 02/17/19 05:32: Sodium 137.8, Potassium 4.78, Chloride 111.0 H, Carbon Dioxide 22.5, Anion Gap 9.08, BUN 65.1 H*, Creatinine 1.64 H, Estimated GFR (MDRD) 30.00 , BUN/Creatinine Ratio 39.69, Glucose 150.4 H, Calcium 8.13 L, Total Bilirubin 0.27, AST 20.1, ALT 34.2, Alkaline Phosphatase 89.7, Total Protein 5.41 L, Albumin 2.78 L, Globulin 2.63, Albumin/Globulin Ratio 1.05 02/17/19 05:32: WBC 45.39 H, RBC 3.79 L, Hgb 9.6 L, Hct 30.2 L, MCV 79.7 L, MCH 25.3 L, MCHC 31.8, RDW Coeff of Kody 17.7 H, Plt Count 325, Neutrophils % (Manual ) 89.0 H, Lymphocytes % (Manual) 4.0 L, Monocytes % (Manual) 7.0, Anisocytosis Not present ASSESSMENT: Please see below. 1. Right upper and middle lobe pneumonia likely due to chronic aspiration 2. Acute renal failure 3. Dementia PLAN: 1. Discontinue Solu-Medrol 2. Prednisone 10mg PO for three days 3. Lasix 20mg IV times one dose Plan and coordination of the patient's care discussed in the presence of Curb Attendant and nurse. SCRIBED BY: Kolton ALBRIGHT scribed while in presence of service performed by Dr. Sams/Mercy Bronson APRN on 02/17/19 ([id number])
[2019-02-17] MEDS: TUSSIONEX PO SCH ×2 (09:16→21:08)
[2019-02-17] MEDS: MICRO-K CAP PO SCH (09:17)
[2019-02-17] MEDS: SEROQUEL PO SCH ×2 (09:17→21:08)
[2019-02-17] MEDS: NAMENDA PO SCH ×2 (09:17→21:08)
[2019-02-17] MEDS: NORVASC PO SCH (09:17)
[2019-02-17] MEDS: ATIVAN PO SCH ×3 (09:17→21:08)
[2019-02-17] MEDS: ARICEPT PO SCH (09:17)
[2019-02-17] MEDS: MINOXIDIL PO SCH ×2 (09:19→21:08)
[2019-02-17] MEDS: TOPROL XL PO SCH (09:19)
[2019-02-17] MEDS: COZAAR PO SCH ×2 (09:19→21:08)
[2019-02-17] MEDS: DULCOLAX PO SCH (09:19)
[2019-02-17] MEDS: PREDNISONE PO SCH (09:19)
[2019-02-17] MEDS: ZITHROMAX 500 MG in SODIUM CHLORIDE 250 ML IV SCH (09:20)
[2019-02-18] MEDS: DUONEB NEB SCH ×4 (05:05→19:35)
[2019-02-18] MEDS: FLAGYL 500 MG/100 ML 500 MG in PREMIX 100 ML NS 1 BAG IV SCH ×3 (05:57→21:03)
[2019-02-18] MEDS: LASIX TAB PO SCH (05:57)
--- NOTE | 2019-02-18 08:59 | PCM.PROG ---
Attending Provider: ATTENDING PROVIDER: Dr. ANDREY SAMS This patient is seen with Mercy Bronson, Nurse Practitioner. DATE OF SERVICE: 02/18/19 SUBJECTIVE: This 88 year old WHITE/ F was hospitalized 02/09/19. The patient is resting comfortably. Legs has more edema today. BUN is worse and creatinine improved. WBC is slightly improved. Clinically she is unchanged. Cough has improved. Eating fairly well. REVIEW OF SYSTEMS: CONSTITUTIONAL: No night sweats. No fatigue, malaise, lethargy. No fever or chills. Weakness. HEENT: Eyes: No visual changes. No eye pain. No eye discharge. ENT: No runny nose. No epistaxis. No sinus pain. No odynophagia. No congestion. RESPIRATORY: No cough, no congestion. No hemoptysis. No shortness of breath. CARDIOVASCULAR: No angina symptoms. No CHF symptoms. No atypical chest pain for CAD. No palpitations. No orthopnea.. GASTROINTESTINAL: No abdominal pain. No nausea or vomiting. No diarrhea or constipation. No hematemesis. No hematochezia. GENITOURINARY: No urgency. No frequency. No dysuria. No hematuria. No obstructive symptoms. No discharge. No pain. No significant abnormal bleeding. MUSCULOSKELETAL: No musculoskeletal pain; no joint swelling. NEUROLOGICAL: Awake,confusion. No headache. No neck pain. No syncope. No seizures. No dizziness. PSYCHIATRIC: Not anxious. No depression. No suicidal thoughts. No homicidal thoughts. SKIN: No rash. No lesions. No wounds. Edema ENDOCRINE: No unexplained weight loss. No weight gain. HEMATOLOGIC/LYMPHATIC: No anemia. No purpura. No petechiae. No prolonged or excessive bleeding. No palpable lymph nodes. PHYSICAL EXAMINATION: GENERAL: The patient is awake, alert and oriented to person only, lying in bed in no distress. VITAL SIGNS: Temperature 98.7 F, Pulse 77, Respiratory Rate 20, BP 129/61, Pulse Ox 99% HEENT: Head normocephalic, atraumatic. Eyes: Extraocular muscles are intact. Pupils are equal, round and reactive to light and accommodation. Ears: No lesions. Nose appeared normal. Throat: No exudate or erythema. NECK: Supple. No JVD, no carotid bruit. No lymphadenopathy or thyromegaly. LUNGS: Diminished breath sounds. Clear to auscultation. Percussion note normal. Chest symmetrical. HEART: S1, S2, no S3. No murmurs. No cyanosis or clubbing. No ascites. Pulses: Dorsalis pedis and posterior tibial pulses +1 to +2 both sides. ABDOMEN: Soft. Non-tender. Bowel sounds active. No CVA tenderness. No mass felt. EXTREMITIES: +1 bilateral leg edema. Full range of motion of all extremities, equal. NEUROLOGIC: No focal deficit. Cranial nerves II through XII are grossly intact. No headache, no double vision or headache. SKIN: Not dry. Intact. Turgor-normal. LYMPHATIC: No palpable lymph nodes/no lymphedema. MUSCULOSKELETAL: Normal joints with no swelling. Muscle tone is normal. LAB REVIEW: 02/18/19 04:45 02/18/19 04:45 02/18/19 04:45: Sodium 137.7, Potassium 4.70, Chloride 112.1 H, Carbon Dioxide 21.3 L, Anion Gap 9.00, BUN 68.6 H*, Creatinine 1.49 H, Estimated GFR (MDRD) 33.00, BUN/Creatinine Ratio 46.04, Glucose 111.9 H, Calcium 7.85 L, Total Bilirubin 0.29, AST 20.2, ALT 33.1, Alkaline Phosphatase 86.3, Total Protein 4.85 L, Albumin 2.47 L, Globulin 2.38, Albumin/Globulin Ratio 1.03 02/18/19 04:45: WBC 42.73 H, RBC 3.70 L, Hgb 9.4 L, Hct 29.9 L, MCV 80.8 L, MCH 25.4 L, MCHC 31.4 L, RDW Coeff of Kody 18.1 H, Plt Count 296, Neutrophils % ( Manual) 88.0 H, Lymphocytes % (Manual) 4.0 L, Monocytes % (Manual) 8.0, Anisocytosis Not present ASSESSMENT: Please see below. 1. Right upper and middle lobe pneumonia likely due to chronic aspiration 2. Acute renal failure 3. Dementia 4. Leg edema PLAN: 1. Discontinue Prednisone. Plan and coordination of the patient's care discussed in the presence of Vegetables Cook and nurse. SCRIBED BY: Kolton ALBRIGHT scribed while in presence of service performed by Dr. Sams/Mercy Bronson APRN on 02/18/19 ([id number])
[2019-02-18] MEDS: TUSSIONEX PO SCH ×2 (09:01→21:03)
[2019-02-18] MEDS: DULCOLAX PO SCH (09:02)
[2019-02-18] MEDS: NAMENDA PO SCH ×2 (09:02→21:03)
[2019-02-18] MEDS: MICRO-K CAP PO SCH (09:02)
[2019-02-18] MEDS: ATIVAN PO SCH ×3 (09:03→21:03)
[2019-02-18] MEDS: COZAAR PO SCH ×2 (09:03→21:03)
[2019-02-18] MEDS: ARICEPT PO SCH (09:04)
[2019-02-18] MEDS: SEROQUEL PO SCH ×2 (09:06→21:03)
[2019-02-18] MEDS: NORVASC PO SCH (09:06)
[2019-02-18] MEDS: TOPROL XL PO SCH (09:06)
[2019-02-18] MEDS: PREDNISONE PO SCH (09:07)
[2019-02-18] MEDS: MINOXIDIL PO SCH ×2 (09:15→21:03)
--- NOTE | 2019-02-18 14:26 | PN ---
DATE OF SERVICE: 02/17/19 SUBJECTIVE: The patient was seen and examined with Nurse Practitioner. The patient's condition has deteriorated since hospitalization but stable. She has intermittent aspiration right sided pneumonia. She has severe dementia. CONDITION: Stable. PROGNOSIS: Poor TIME SPENT: More than 30 minutes. Plan and coordination of the patient's care discussed in the presence of nurse. NABIL
[2019-02-19] MEDS: DUONEB NEB SCH ×4 (04:45→19:20)
[2019-02-19] MEDS: FLAGYL 500 MG/100 ML 500 MG in PREMIX 100 ML NS 1 BAG IV SCH ×3 (05:45→20:11)
[2019-02-19] MEDS: LASIX TAB PO SCH (05:45)
[2019-02-19] MEDS: NORVASC PO SCH (09:17)
[2019-02-19] MEDS: DULCOLAX PO SCH (09:17)
[2019-02-19] MEDS: ATIVAN PO SCH ×3 (09:17→20:10)
[2019-02-19] MEDS: NAMENDA PO SCH ×2 (09:17→20:10)
[2019-02-19] MEDS: COZAAR PO SCH ×2 (09:17→20:09)
[2019-02-19] MEDS: SEROQUEL PO SCH ×2 (09:18→20:09)
[2019-02-19] MEDS: TOPROL XL PO SCH (09:18)
[2019-02-19] MEDS: MICRO-K CAP PO SCH (09:18)
[2019-02-19] MEDS: ARICEPT PO SCH (09:18)
[2019-02-19] MEDS: MINOXIDIL PO SCH ×2 (09:19→20:10)
[2019-02-19] MEDS: TUSSIONEX PO SCH ×2 (09:19→20:10)
[2019-02-20] MEDS: DUONEB NEB SCH ×4 (05:00→20:10)
[2019-02-20] MEDS: LASIX TAB PO SCH (05:55)
[2019-02-20] MEDS: FLAGYL 500 MG/100 ML 500 MG in PREMIX 100 ML NS 1 BAG IV SCH ×3 (05:55→20:41)
[2019-02-20] MEDS: TUSSIONEX PO SCH ×2 (08:14→20:42)
[2019-02-20] MEDS: MINOXIDIL PO SCH ×2 (08:14→20:41)
[2019-02-20] MEDS: TOPROL XL PO SCH (08:15)
[2019-02-20] MEDS: NORVASC PO SCH (08:15)
[2019-02-20] MEDS: ATIVAN PO SCH ×3 (08:15→20:41)
[2019-02-20] MEDS: ARICEPT PO SCH (08:15)
[2019-02-20] MEDS: MICRO-K CAP PO SCH (08:15)
[2019-02-20] MEDS: DULCOLAX PO SCH (08:16)
[2019-02-20] MEDS: NAMENDA PO SCH ×2 (08:16→20:42)
[2019-02-20] MEDS: SEROQUEL PO SCH ×2 (08:16→20:41)
[2019-02-20] MEDS: COZAAR PO SCH ×2 (08:16→20:41)
--- NOTE | 2019-02-20 09:53 | PN ---
DATE OF SERVICE: 02/18/19 SUBJECTIVE: The patient was seen and examined with the nurse practitioner. The patient's condition is deteriorating slowly with continued aspiration off and on, not responding to the medication of any kind especially antibiotics. WBC count is still high, a little less than before. She has no clinical evidence of C. diff but high WBC count could be related to that or could be from leukocytosis from aspiration pneumonitis on continued basis. She has severe dementia. Prognosis is poor. TIME SPENT: More than 30 minutes. Plan and coordination of the patient's care discussed in the presence of nurse. NABIL
--- NOTE | 2019-02-20 09:58 | PN ---
DATE OF SERVICE: 02/19/19 SUBJECTIVE: 88-year-old white female hospitalized with pneumonia, right-sided with atelectasis and consolidation. The patient's condition has been stable but has deteriorated. The WBC count is better to 31,000. The patient's creatinine is better 1.4 with BUN 62. Intake/output seems to be balanced. PHYSICAL EXAMINATION: GENERAL: The patient is alert at times but seems to be sleepy. VITAL SIGNS: Temperature 97.9, pulse 82, respiratory rate 18, blood pressure 144/77. Pulse ox 98% on 2L. HEENT: Head normocephalic, atraumatic. Eyes: Extraocular muscles are intact. Pupils are equal, round and reactive to light and accommodation. Ears: No lesions. Nose appeared normal. Throat: No exudate or erythema. NECK: Supple. No JVD, no carotid bruit. No lymphadenopathy or thyromegaly. LUNGS: Decreased breath sounds on the right side, practically absent at the bases. Left lung seems to have good aeration. HEART: S1, S2, no S3. No murmurs. No cyanosis or clubbing. No ascites. Pulses: Dorsalis pedis and posterior tibial pulses +1 to +2 bilaterally. ABDOMEN: Soft. Nontender. Bowel sounds active. No CVA tenderness. No mass felt. EXTREMITIES: No edema. Full range of motion of all extremities, equal. NEUROLOGIC: No focal deficit. Cranial nerves II through XII are grossly intact. No headache, no double vision or headache. SKIN: Not dry. Intact. Turgor - normal. LYMPHATIC: No palpable lymph nodes/no lymphedema. MUSCULOSKELETAL: Normal joints with no swelling. Muscle tone is normal. ASSESSMENT: Hemoglobin, hematocrit 28, will monitor this. Kidney functions need to be monitored. 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 PLAN: 1. Continue antibiotics, steroids, nebs and slow IV fluids. PROGNOSIS: Poor. TIME SPENT: More than 30 minutes. Plan and coordination of the patient's care discussed in the presence of nurse. NABIL
[2019-02-21] MEDS: FLAGYL 500 MG/100 ML 500 MG in PREMIX 100 ML NS 1 BAG IV SCH ×3 (05:06→20:28)
[2019-02-21] MEDS: DUONEB NEB SCH ×4 (05:10→19:40)
[2019-02-21] MEDS: LASIX TAB PO SCH (05:50)
--- NOTE | 2019-02-21 08:20 | PCM.PROG ---
Attending Provider: ATTENDING PROVIDER: Dr. ANDREY SAMS This patient is seen with Mercy Bronson, Nurse Practitioner. DATE OF SERVICE: 02/21/19 SUBJECTIVE: This 88 year old WHITE/ F was hospitalized 02/09/19. The patient is resting comfortably. WBC and kidney function has improved. She has not been eating as much but drinking. She seems to be clinical improving. REVIEW OF SYSTEMS: CONSTITUTIONAL: No night sweats. No fatigue, malaise, lethargy. No fever or chills. Weakness. HEENT: Eyes: No visual changes. No eye pain. No eye discharge. ENT: No runny nose. No epistaxis. No sinus pain. No odynophagia. No congestion. RESPIRATORY: No cough, no congestion. No hemoptysis. No shortness of breath. CARDIOVASCULAR: No angina symptoms. No CHF symptoms. No atypical chest pain for CAD. No palpitations. No orthopnea.. GASTROINTESTINAL: No abdominal pain. No nausea or vomiting. No diarrhea or constipation. No hematemesis. No hematochezia. GENITOURINARY: No urgency. No frequency. No dysuria. No hematuria. No obstructive symptoms. No discharge. No pain. No significant abnormal bleeding. MUSCULOSKELETAL: No musculoskeletal pain; no joint swelling. NEUROLOGICAL: Awake, confused. No headache. No neck pain. No syncope. No seizures. No dizziness. PSYCHIATRIC: Not anxious. No depression. No suicidal thoughts. No homicidal thoughts. SKIN: No rash. No lesions. No wounds. Leg edema. ENDOCRINE: No unexplained weight loss. No weight gain. HEMATOLOGIC/LYMPHATIC: No anemia. No purpura. No petechiae. No prolonged or excessive bleeding. No palpable lymph nodes. PHYSICAL EXAMINATION: GENERAL: The patient is awake and oriented to person. , lying in bed in no distress. VITAL SIGNS: Temperature 98.7 F, Pulse 83, Respiratory Rate 18, BP 120/62, Pulse Ox 94% HEENT: Head normocephalic, atraumatic. Eyes: Extraocular muscles are intact. Pupils are equal, round and reactive to light and accommodation. Ears: No lesions. Nose appeared normal. Throat: No exudate or erythema. NECK: Supple. No JVD, no carotid bruit. No lymphadenopathy or thyromegaly. LUNGS: Diminished breath sounds. Clear to auscultation. Percussion note normal. Chest symmetrical. HEART: S1, S2, no S3. Grade I/ systolic murmurs. No cyanosis or clubbing. No ascites. Pulses: Dorsalis pedis and posterior tibial pulses +1 to +2 both sides. ABDOMEN: Soft. Non-tender. Bowel sounds active. No CVA tenderness. No mass felt. EXTREMITIES: 1+ bilateral leg edema. Full range of motion of all extremities, equal. NEUROLOGIC: No focal deficit. Cranial nerves II through XII are grossly intact. No headache, no double vision or headache. SKIN: Not dry. Intact. Turgor-normal. LYMPHATIC: No palpable lymph nodes/no lymphedema. MUSCULOSKELETAL: Normal joints with no swelling. Muscle tone is normal. LAB REVIEW: 02/21/19 04:42 02/21/19 04:42 02/21/19 04:42: Sodium 137.6, Potassium 4.46, Chloride 111.6 H, Carbon Dioxide 25.2, Anion Gap 5.26, BUN 57.8 H, Creatinine 1.39 H, Estimated GFR (MDRD) 36.00 , BUN/Creatinine Ratio 41.58, Glucose 99.0, Calcium 7.35 L, Total Bilirubin 0.35 , AST 18.0, ALT 21.5, Alkaline Phosphatase 69.2, Total Protein 4.30 L, Albumin 2.07 L, Globulin 2.23, Albumin/Globulin Ratio 0.92 02/21/19 04:42: WBC 29.06 H, RBC 3.25 L, Hgb 8.4 L, Hct 26.0 L, MCV 80.0 L, MCH 25.8 L, MCHC 32.3, RDW Coeff of Kody 19.2 H, Plt Count 211, Immature Gran % (Auto ) 2.4, Neut % (Auto) 82.2, Lymph % (Auto) 6.4 L, Shannon % (Auto) 7.7, Eos % (Auto ) 1.1, Baso % (Auto) 0.2, Immature Gran # (Auto) 0.7, Neut # (Auto) 23.9 H, Lymph # (Auto) 1.9, Shannon # (Auto) 2.2 H, Eos # (Auto) 0.3, Baso # (Auto) 0.1 ASSESSMENT: Please see below. 1. Right upper and middle lobe pneumonia likely due to chronic aspiration 2. Acute renal failure 3. Dementia 4. Leg edema PLAN: 1. Continue Flagyl 2. Patient is slightly improving. May anticipate discharge back to [facility] today or tomorrow. Still feel given that patient multiple medical conditions prognosis: Poor. Plan and coordination of the patient's care discussed in the presence of Rn First Assist and nurse. SCRIBED BY: KAMI PICKARD Workers Compensation Consultant scribed while in presence of service performed by Dr. Sams/Mercy Bronson APRN on 02/21/19 ([id number])
[2019-02-21] MEDS: MICRO-K CAP PO SCH (09:26)
[2019-02-21] MEDS: TOPROL XL PO SCH (09:26)
[2019-02-21] MEDS: MINOXIDIL PO SCH ×2 (09:27→20:28)
[2019-02-21] MEDS: ATIVAN PO SCH ×3 (09:27→20:27)
[2019-02-21] MEDS: SEROQUEL PO SCH ×2 (09:27→20:27)
[2019-02-21] MEDS: NORVASC PO SCH (09:28)
[2019-02-21] MEDS: DULCOLAX PO SCH (09:28)
[2019-02-21] MEDS: COZAAR PO SCH ×2 (09:28→20:28)
[2019-02-21] MEDS: ARICEPT PO SCH (09:29)
[2019-02-21] MEDS: NAMENDA PO SCH ×2 (09:29→20:28)
[2019-02-21] MEDS: TUSSIONEX PO SCH ×2 (09:30→20:29)
[2019-02-21] MEDS: NYSTOP POWDER TP SCH ×3 (09:57→20:28)
--- NOTE | 2019-02-21 13:19 | PN ---
DATE OF SERVICE: 02/20/19 SUBJECTIVE: 88 year old white female hospitalized with right sided pneumonias. The patient' s condition is stabilizing in a way that she doesn't seem to be in distress. She is hard of hearing but she is alert, sitting up in the chair with no distress. REVIEW OF SYSTEMS: CONSTITUTIONAL: No night sweats. No fatigue, malaise, lethargy. No fever or chills. HEENT: Eyes: No visual changes. No eye pain. No eye discharge. ENT: No runny nose. No epistaxis. No sinus pain. No sore throat. No odynophagia. No congestion. RESPIRATORY: No cough, no congestion. No hemoptysis. No shortness of breath. CARDIOVASCULAR: No angina symptoms. No CHF symptoms. No atypical chest pain for CAD. No palpitations. No PND. No orthopnea. GASTROINTESTINAL: No abdominal pain. No nausea or vomiting. No diarrhea or constipation. No hematemesis. No hematochezia. GENITOURINARY: No urgency. No frequency. No dysuria. No hematuria. No obstructive symptoms. No discharge. No pain. No significant abnormal bleeding. MUSCULOSKELETAL: No musculoskeletal pain; no joint swelling. NEUROLOGICAL: No headache. No neck pain. No syncope. No seizures. No dizziness. PSYCHIATRIC: Not anxious. No depression. No suicidal thoughts. No homicidal thoughts. SKIN: No rash. No lesions. No wounds. ENDOCRINE: No unexplained weight loss. No weight gain. HEMATOLOGIC/LYMPHATIC: No anemia. No purpura. No petechiae. No prolonged or excessive bleeding. No palpable lymph nodes. PHYSICAL EXAMINATION: VITAL SIGNS: Temperature is 99, pulse 90, respiratory rate 18, blood pressure 146/69, pulse ox 93%. HEENT: Head normocephalic, atraumatic. Eyes: Extraocular muscles are intact. Pupils are equal, round and reactive to light and accommodation. Ears: No lesions. Nose appeared normal. Throat: No exudate or erythema. NECK: Supple. No JVD, no carotid bruit. No lymphadenopathy or thyromegaly. LUNGS: Decreased breath sounds especially on the right side with absent breath sounds on the right base. The patient has generalized anasarca from hypoproteinemia and practical bed ridden situation with inability to walk or ambulate. Clear to auscultation. Percussion note normal. Chest symmetrical. HEART: S1, S2, no S3. No murmurs. No cyanosis or clubbing. No ascites. Pulses: Dorsalis pedis and posterior tibial pulses +1 to +2 bilaterally. ABDOMEN: Soft. Nontender. Bowel sounds active. No CVA tenderness. No mass felt. EXTREMITIES: No edema. Full range of motion of all extremities, equal. NEUROLOGIC: No focal deficit. Cranial nerves II through XII are grossly intact. No headache, no double vision or headache. SKIN: Not dry. Intact. Turgor - normal. LYMPHATIC: No palpable lymph nodes/no lymphedema. MUSCULOSKELETAL: Normal joints with no swelling. Muscle tone is normal. LABS: The patient has anemia with WBC of 33,000. Creatinine 1.3, BUN 59. ASSESSMENT: 1. Pneumonia right sided, aspiration with atelectasis and confusion 2. Generalized anasarca from malnutrition and anasarca from proteinemia and hypoalbuminemia. 3. Renal azotemia 4. Severe anemia PLAN: 1. Continue to given IV antibiotics 2. Supportive measures 3. We may have to end up giving her some IV Lasix or Bumex of course that is going to kidney functions worse. The patient has dementia. She is disoriented to time, place and person. PROGNOSIS: Poor TIME SPENT: More than 30 minutes. Plan and coordination of the patient's care discussed in the presence of nurse. NABIL
--- NOTE | 2019-02-21 14:30 | PN ---
DATE OF SERVICE: 02/21/19 SUBJECTIVE: Seems to have WBC better, 29,000. She is looking somewhat better. Generalized anasarca noted. Continue the same management. PROGNOSIS: Poor considering her more or less bed ridden situation with severe dementia. TIME SPENT: More than 30 minutes. Plan and coordination of the patient's care discussed in the presence of nurse. NABIL
[2019-02-22] MEDS: DUONEB NEB SCH ×3 (04:45→14:07)
[2019-02-22] MEDS: FLAGYL 500 MG/100 ML 500 MG in PREMIX 100 ML NS 1 BAG IV SCH (04:45)
[2019-02-22] MEDS: LASIX TAB PO SCH (05:37)
--- NOTE | 2019-02-22 08:34 | PCM.PROG ---
Attending Provider: ATTENDING PROVIDER: Dr. ANDREY SAMS This patient is seen with Mercy Bronson, Nurse Practitioner. DATE OF SERVICE: 02/22/19 SUBJECTIVE: This 88 year old WHITE/ F was hospitalized 02/09/19. The patient is resting comfortably. Hgb is down today. WBC is slightly improved. Kidney function slightly improved. I do believe she is slowly declining due to chronic medical conditions. REVIEW OF SYSTEMS: CONSTITUTIONAL: No night sweats. No fatigue, malaise, lethargy. No fever or chills. HEENT: Eyes: No visual changes. No eye pain. No eye discharge. ENT: No runny nose. No epistaxis. No sinus pain. No odynophagia. No congestion. RESPIRATORY: No cough, no congestion. No hemoptysis. No shortness of breath. CARDIOVASCULAR: No angina symptoms. No CHF symptoms. No atypical chest pain for CAD. No palpitations. No orthopnea.. GASTROINTESTINAL: No abdominal pain. No nausea or vomiting. No diarrhea or constipation. No hematemesis. No hematochezia. GENITOURINARY: No urgency. No frequency. No dysuria. No hematuria. No obstructive symptoms. No discharge. No pain. No significant abnormal bleeding. MUSCULOSKELETAL: No musculoskeletal pain; no joint swelling. NEUROLOGICAL: Awake, alert, confused. No headache. No neck pain. No syncope. No seizures. No dizziness. PSYCHIATRIC: Not anxious. No depression. No suicidal thoughts. No homicidal thoughts. SKIN: No rash. No lesions. No wounds. ENDOCRINE: No unexplained weight loss. No weight gain. HEMATOLOGIC/LYMPHATIC: Anemia. No purpura. No petechiae. No prolonged or excessive bleeding. No palpable lymph nodes. PHYSICAL EXAMINATION: GENERAL: The patient is confused, lying in bed in no distress. VITAL SIGNS: Temperature 99.9 F, Pulse 100, Respiratory Rate 16, BP 121/68, Pulse Ox 90% HEENT: Head normocephalic, atraumatic. Eyes: Extraocular muscles are intact. Pupils are equal, round and reactive to light and accommodation. Ears: No lesions. Nose appeared normal. Throat: No exudate or erythema. NECK: Supple. No JVD, no carotid bruit. No lymphadenopathy or thyromegaly. LUNGS: Diminished breath sounds, right greater than left. Clear to auscultation. Percussion note normal. Chest symmetrical. HEART: S1, S2, no S3. No murmurs. No cyanosis or clubbing. No ascites. Pulses: Dorsalis pedis and posterior tibial pulses +1 to +2 both sides. ABDOMEN: Soft. Non-tender. Bowel sounds active. No CVA tenderness. No mass felt. EXTREMITIES: No edema. Full range of motion of all extremities, equal. NEUROLOGIC: No focal deficit. Cranial nerves II through XII are grossly intact. No headache, no double vision or headache. SKIN: Not dry. Intact. Turgor-normal. Pallor. LYMPHATIC: No palpable lymph nodes/no lymphedema. MUSCULOSKELETAL: Normal joints with no swelling. Muscle tone is normal. LAB REVIEW: 02/22/19 04:43 02/22/19 04:43 02/22/19 04:43: Sodium 137.1, Potassium 4.41, Chloride 112.0 H, Carbon Dioxide 24.4, Anion Gap 5.11, BUN 53.0 H, Creatinine 1.38 H, Estimated GFR (MDRD) 36.00 , BUN/Creatinine Ratio 38.40, Glucose 113.9 H, Calcium 7.19 L, Total Bilirubin 0.41, AST 12.7 L, ALT 19.0, Alkaline Phosphatase 71.3, Total Protein 4.24 L, Albumin 2.04 L, Globulin 2.20, Albumin/Globulin Ratio 0.92 02/22/19 04:43: WBC 25.61 H, RBC 3.11 L, Hgb 7.8 L, Hct 24.7 L, MCV 79.4 L, MCH 25.1 L, MCHC 31.6 L, RDW Coeff of Kody 19.3 H, Plt Count 216, Immature Gran % ( Auto) 1.2, Neut % (Auto) 83.1, Lymph % (Auto) 7.0 L, [place] % (Auto) 7.7, Eos % ( Auto) 0.9, Baso % (Auto) 0.1, Immature Gran # (Auto) 0.3, Neut # (Auto) 21.3 H, Lymph # (Auto) 1.8, [place] # (Auto) 2.0, Eos # (Auto) 0.2, Baso # (Auto) 0.0 ASSESSMENT: Please see below. 1. Anemia 2. Chronic right aspiration pneumonia 3. Chronic kidney disease 4. Leukocytosis likely due to chronic aspiration symptoms. PLAN: 1. Type and cross match two units and give one of packed red blood cells. 2. Stop Flagyl I have attempted to call niece who is the POA but was unable to get ahold of her , in hopes of discussing with her the deteriorating condition. Plan and coordination of the patient's care discussed in the presence of Physician Coder and nurse. SCRIBED BY: KAMI PICKARD, Surgical Oncologist scribed while in presence of service performed by Dr. Sams/Mercy Bronson APRN on 02/22/19 ([id number])
[2019-02-22] MEDS: MINOXIDIL PO SCH (09:35)
[2019-02-22] MEDS: NORVASC PO SCH (09:36)
[2019-02-22] MEDS: COZAAR PO SCH (09:36)
[2019-02-22] MEDS: DULCOLAX PO SCH (09:36)
[2019-02-22] MEDS: ATIVAN PO SCH (09:36)
[2019-02-22] MEDS: TOPROL XL PO SCH (09:37)
[2019-02-22] MEDS: MICRO-K CAP PO SCH (09:37)
[2019-02-22] MEDS: SEROQUEL PO SCH (09:37)
[2019-02-22] MEDS: NAMENDA PO SCH (09:38)
[2019-02-22] MEDS: TUSSIONEX PO SCH (09:38)
[2019-02-22] MEDS: ARICEPT PO SCH (09:38)
[2019-02-22] MEDS: NYSTOP POWDER TP SCH (09:39)
[2019-02-22 13:27] VITALS: TEMP 99
--- NOTE | 2019-02-22 13:45 | CM.DICTOOL ---
ADMISSION: 02/09/19 14:51 DISCHARGE: 2018 DATE OF SERVICE: 02/22/19 FINAL DIAGNOSIS PNEUMONIA, RIGHT MIDDLE AND LOWER CHRONIC RIGHT ASPIRATION PNEUMONIA PLEURAL EFFUSION, RIGHT ACUTE RENAL FAILURE UTI, E-COLI ORGANISM ANEMIA, TRANSFUSION [address] WITH NEGATIVE C-DIFF ALZHEIMER'S DEMENTIA WITH BEHAVIORAL DISTURBANCE GENERALIZED WEAKNESS DYSPHAGIA HTN CKD STAGE 3 OA VITAMIN D DEFICIENCY LAST VITALS Temp Pulse Resp BP Pulse Ox 98.8 F 90 16 116/52 L 90 L 02/22/19 11:22 02/22/19 11:22 02/22/19 11:22 02/22/19 11:22 02/22/19 04:38 TAKE THESE MEDICATIONS AT HOME Acetaminophen (Tylenol) 650 mg PO Q6H PRN PRN Reason: Fever >101 Last Admin: 02/20/19 05:55 Dose: 650 mg Amlodipine Besylate (Norvasc) 10 mg PO DAILY [facility] Last Admin: 02/22/19 09:36 Dose: 10 mg Bisacodyl (Dulcolax) 5 mg PO DAILY [facility] Last Admin: 02/22/19 09:36 Dose: 5 mg Bisacodyl (Dulcolax) 10 mg RC DAILY PRN PRN Reason: Constipation Last Admin: 02/19/19 20:11 Dose: 10 mg Donepezil HCl (Aricept) 5 mg PO DAILY [facility] Last Admin: 02/22/19 09:38 Dose: 5 mg Furosemide (Lasix Tab) 20 mg PO QDAC [facility] Last Admin: 02/22/19 05:37 Dose: 20 mg Lorazepam (Ativan) 0.5 mg PO TID [facility] Last Admin: 02/22/19 09:36 Dose: 0.5 mg Losartan Potassium (Cozaar) 50 mg PO BID [facility] Last Admin: 02/22/19 09:36 Dose: 50 mg Memantine (Namenda) 10 mg PO BID [facility] Last Admin: 02/22/19 09:38 Dose: 10 mg Metoprolol Succinate (Toprol Xl) 25 mg PO DAILY [facility] Last Admin: 02/22/19 09:37 Dose: 25 mg Minoxidil (Minoxidil) 2.5 mg PO BID [facility] Last Admin: 02/22/19 09:35 Dose: 2.5 mg Nystatin (Nystop Powder) 1 applic TP TID [facility] Last Admin: 09/17/19 09:39 Dose: 1 applic Potassium Chloride (Micro-K Cap) 10 meq PO DAILYWM [facility] Last Admin: 02/22/19 09:37 Dose: 10 meq Quetiapine Fumarate (Seroquel) 50 mg PO BID [facility] Last Admin: 02/22/19 09:37 Dose: 50 mg ALLERGIES Penicillins Adverse Reaction (Verified 02/09/19 11:30) Unknown DISCONTINUED MEDICATIONS NONE NEW PRESCRIPTIONS: NONE SMOKING: NOT APPLICABLE DISEASE SPECIFIC EDUCATION: NOT APPLICABLE DUE TO ALZHEIMERS DEMENTIA LAB REVIEW: 02/22/19 04:43 02/22/19 04:43 02/22/19 08:58: Blood Type A POSITIVE, Antibody Screen Negative, Crossmatch (AHG ) See Detail 02/22/19 04:43: Blood Type A POSITIVE 02/22/19 04:43: Sodium 137.1, Potassium 4.41, Chloride 112.0 H, Carbon Dioxide 24.4, Anion Gap 5.11, BUN 53.0 H, Creatinine 1.38 H, Estimated GFR (MDRD) 36.00 , BUN/Creatinine Ratio 38.40, Glucose 113.9 H, Calcium 7.19 L, Total Bilirubin 0.41, AST 12.7 L, ALT 19.0, Alkaline Phosphatase 71.3, Total Protein 4.24 L, Albumin 2.04 L, Globulin 2.20, Albumin/Globulin Ratio 0.92 02/22/19 04:43: WBC 25.61 H, RBC 3.11 L, Hgb 7.8 L, Hct 24.7 L, MCV 79.4 L, MCH 25.1 L, MCHC 31.6 L, RDW Coeff of Kody 19.3 H, Plt Count 216, Immature Gran % ( Auto) 1.2, Neut % (Auto) 83.1, Lymph % (Auto) 7.0 L, [place] % (Auto) 7.7, Eos % ( Auto) 0.9, Baso % (Auto) 0.1, Immature Gran # (Auto) 0.3, Neut # (Auto) 21.3 H, Lymph # (Auto) 1.8, [place] # (Auto) 2.0, Eos # (Auto) 0.2, Baso # (Auto) 0.0 PLAN: DISCHARGE TO [facility] DIET: PUREED WITH NECTAR THICK LIQUIDS ENSURE PLUS 240 ML WITH EACH MEAL ACTIVITY: TURN EVERY 2 HOURS UP TO CHAIR DAILY, IF DESIRED OXYGEN AT 2 LITERS PRN VITAL SIGNS PER HOSPICE PROTOCOL INCONTINENT CARE PRN DECUBITUS PRECAUTIONS PATIENT IS HARD OF HEARING, BUT DOES READ WRITTEN QUESTIONS, STATEMENTS [facility] REFERRAL (CONTACTED AND WILL MEET WITH CRYSTAL WOMACK LATER TODAY) OTHER ORDERS PER [facility] NO LABS CODE STATUS : DNR DONOVAN KIM APRN/DR. SAMS WILL FOLLOW PATIENT AT [place] MS. DUMONT IS ALERT TO PERSON. SHE IS HARD OF HEARING, BUT READS COMMUNICATION BOARD IN HER ROOM. SHE IS ABLE TO FEED HERSELF, BUT NEEDS ENCOURAGEMENT. MS. [place]UM[place] IS INCONTINENT OF URINE, BUT WILL ALSO REQUEST TO USE THE BSC. SHE IS ABLE TO TRANSFER WITH 1-2 PERSON ASSIST. SHE IS DEPENDENT FOR ALL PERSONAL CARE AND DRESSING. SKIN IS INTACT, BUT REDNESS IS NOTED TO GROIN AND ELIEL AREAS. SKIN IS SMOOTH, THIN AND INTACT. PITTING EDEMA, 1+ IS NOTED TO THE UPPER AND LOWER EXTREMITIES. SEVERAL AREAS OF ECCHYMOSIS ARE NOTED TO THE UPPER AND LOWER EXTREMITIES. A SMALL CRUSTED AREA IS NOTED TO THE RIGHT ANTERIOR CALF. ____ MD DONOVAN KRISHNAMURTHY APRN
[2019-02-22 14:23] VITALS: BP 141/70
--- NOTE | 2019-02-23 10:45 | PN ---
DATE OF SERVICE: 02/22/19 SUBJECTIVE: The patient was seen and examined with the Nurse Practitioner. The patient is going to be discharged. Once she is discharged she is going to be on Hospice. The whole Hospice process and all that was discussed with the power of property maintenance technician for health. The patient's prognosis is poor. The patient has dementia and chronic aspiration with current pneumonia involving the right side of the lung. TIME SPENT: More than 30 minutes. Plan and coordination of the patient's care discussed in the presence of nurse. NABIL
--- NOTE | 2019-02-23 10:47 | PN ---
02/09/19: Level 5 02/10/19: Intermediate 02/11/19: Intermediate 02/12/19: Intermediate 02/13/19: Intermediate 02/14/19: Intermediate 02/15/19: Intermediate 02/16/19: Intermediate 02/17/19: Intermediate 02/18/19: Intermediate 02/19/19: Intermediate 02/20/19: Intermediate 02/21/19: Intermediate 02/22/19: D as in discharge MTDD
--- NOTE | 2019-02-24 09:35 | DS ---
DATE OF SERVICE: 02/22/19 FINAL DIAGNOSIS: 1. PNEUMONIA, RIGHT MIDDLE AND LOWER 2. CHRONIC RIGHT ASPIRATION PNEUMONIA 3. PLEURAL EFFUSION, RIGHT 4. ACUTE RENAL FAILURE 5. UTI, E-COLI ORGANISM 6. ANEMIA, TRANSFUSION [address] UN[address]. COLITIS PER [address] WITH NEGATIVE C-DIFF 8. ALZHEIMER'S DEMENTIA WITH BEHAVIORAL DISTURBANCE 9. GENERALIZED WEAKNESS 10.DYSPHAGIA 11.HTN 12.CKD STAGE 3 13.OA 14.VITAMIN D DEFICIENCY LAST VITALS: Temp Pulse Resp BP Pulse Ox 98.8 F 90 16 116/52 L 90 L 02/22/19 11:22 02/22/19 11:22 02/22/19 11:22 02/22/19 11:22 02/22/19 04:38 DISCHARGE INSTRUCTIONS: DISCHARGE TO [facility]. OXYGEN AT 2 LITERS PRN. VITAL SIGNS PER HOSPICE PROTOCOL. INCONTINENT CARE PRN. DECUBITUS PRECAUTIONS. PATIENT IS HARD OF HEARING, BUT DOES READ WRITTEN QUESTIONS, STATEMENTS. [facility] REFERRAL (CONTACTED AND WILL MEET WITH CRYSTAL WOMACK LATER TODAY). OTHER ORDERS PER [facility]. NO LABS. CODE STATUS : DNR. DONOVAN KIM APRN/DR. SAMS WILL FOLLOW PATIENT AT [facility]. TAKE THESE MEDICATIONS AT HOME: Acetaminophen (Tylenol) 650 mg PO Q6H PRN Amlodipine Besylate (Norvasc) 10 mg PO DAILY [facility] Bisacodyl (Dulcolax) 5 mg PO DAILY [facility] Bisacodyl (Dulcolax) 10 mg RC DAILY PRN Donepezil HCl (Aricept) 5 mg PO DAILY [facility] Furosemide (Lasix Tab) 20 mg PO QDAC [facility] Lorazepam (Ativan) 0.5 mg PO TID [facility] Losartan Potassium (Cozaar) 50 mg PO BID [facility] Memantine (Namenda) 10 mg PO BID [facility] Metoprolol Succinate (Toprol Xl) 25 mg PO DAILY [facility] Minoxidil (Minoxidil) 2.5 mg PO BID [facility] Nystatin (Nystop Powder) 1 applic TP TID [facility] Potassium Chloride (Micro-K Cap) 10 meq PO DAILYWM [facility] Quetiapine Fumarate (Seroquel) 50 mg PO BID [facility] ALLERGIES: Penicillins Adverse Reaction (Verified 02/09/19 11:30) Unknown DISCONTINUED MEDICATIONS: NONE NEW PRESCRIPTIONS: NONE SMOKING: NOT APPLICABLE DISEASE SPECIFIC EDUCATION: NOT APPLICABLE DUE TO ALZHEIMERS DEMENTIA DIET: PUREED WITH NECTAR THICK LIQUIDS ENSURE PLUS 240 ML WITH EACH MEAL ACTIVITY: TURN EVERY 2 HOURS UP TO CHAIR DAILY, IF DESIRED HOSPITAL COURSE: This is a white female who is a resident of ours at [facility]. She was admitted with right middle and lower lobe pneumonia near total collapse of the right lung with large right pleural effusion as well as dehydration, acute renal failure as well as a UTI which was positive for e- coli. She does have severe dementia. She was admitted and placed on Rocephin 1 gram IV daily. She was running fever at the skilled nursing two days prior. We started her on Rocephin, Solu-Cortef and put her NEBS. Over the course of several days her fever resolved, her cough persisted and WBC started to become more elevated however clinically she had improved. We then placed her on Zithromax 500mg IV for three days. Repeat chest x-ray showed not much change. She is unable due to dementia to complete a swallow evaluation. She was recently hospitalized within the past month or month and a half with the same right sided pneumonia. We do believe that this is due to chronic right aspiration pneumonia. The leukocytosis result of this. She also had some anemia initially, it is stabled off. Today it was down to 7.8. Kidney function and BUN continue to worsening despite IV fluids. She then developed severe leg edema. Creatinine slightly improved,BUN is still elevated. She has been eating well. Cough has improved. Due to elevated WBC we did test for C-diff which was negative. She was Flagyl for about 5 days. She has not been eating well the past several day but has been drinking. Today I spoke with her POA which is her niece, Crystal discussed the fact that I feel at this point she is having chronic aspiration the fact that she is sedentary and unable to get out of bed, unable to walk. Her dementia is worsening and I do feel she has a relatively small window for improvement. The POA is in agreement. She feels that the patient has given up as well. I do believe that her body is also failing her given her worsening kidneys. Today she had hgb of 7.8 with no obvious source of bleeding. We have agreed that she will undergo palliative care. We have referred to [facility] which plans on seeing her at the skilled nursing today after discharge. We will continue to follow with her at [place] and she will also be under [facility]. She has had an extensive course of antibiotics. She will not be discharged on any antibiotics. She will not have any lab draws at the skilled nursing again due to palliative care. We will continue the Ensure as the patient seems to like this. We will continue all other medications and will follow her closely. Her Prognosis is poor. TIME SPENT: More than 60 minutes. NABIL
== END 2019-02-22 15:00 | DRG 194 ==
LOC: ED 11:20 → MEDSURG B 14:51
PROVIDERS: ADMIT Internal Medicine; ATTEND Internal Medicine
DX: K52.9 Noninfective gastroenteritis and colitis, unspecified; R79.89 Other specified abnormal findings of blood chemistry; E87.5 Hyperkalemia; R13.10 Dysphagia, unspecified; J90 Pleural effusion, not elsewhere classified; I10 Essential (primary) hypertension; E86.0 Dehydration; R53.1 Weakness; B96.20 Unspecified Escherichia coli [E. coli] as the cause of diseases classified elsewhere; N17.9 Acute kidney failure, unspecified; F02.81 Dementia in other diseases classified elsewhere, unspecified severity, with behavioral disturbance; E55.9 Vitamin D deficiency, unspecified; R60.0 Localized edema; M19.90 Unspecified osteoarthritis, unspecified site; D64.9 Anemia, unspecified; R06.02 Shortness of breath; G30.9 Alzheimer's disease, unspecified; J18.1 Lobar pneumonia, unspecified organism; N18.3 Chronic kidney disease, stage 3 (moderate); N39.0 Urinary tract infection, site not specified